=== PATIENT | female | born 1985 | race Caucasian/White ===

== ENCOUNTER 2020-08-14 12:09 | Emergency (ER) | payer MEDICAID, SELFPAY ==
--- NOTE | ~2020-08-14 | CT_ITS ---
EXAMINATION: CT ABDOMEN AND PELVIS WITH CONTRAST CLINICAL INFORMATION: Right-sided pain COMPARISON: Previous ultrasound from 2016 and upper GI July 2018 TECHNIQUE: Multidetector volumetric images were obtained from the superior aspect of the liver through the pubic symphysis following administration 85 mL of Omnipaque 350 intravenous contrast. Sagittal and coronal reformatted images were obtained on the technologist's workstation. Oral contrast: Yes This CT examination was performed using dose optimization techniques as appropriate, variously including the following: *Automated exposure control *Adjustment of mA and/or kV according to patient size (this includes techniques or standardized protocols for targeted exams where dose is matched to indication/reason for exam; i.e. extremities or head) *Use of iterative reconstruction technique DLP: 401 mGy-cm FINDINGS: LUNG BASES: The visualized lung bases are unremarkable. LIVER, GALLBLADDER, AND BILIARY TREE: The liver is low in attenuation suggestive of fatty infiltration. No focal liver lesion is seen. The liver is slightly enlarged, right lobe measuring 20 cm in length. The gallbladder is been removed. There is no biliary duct dilatation. PANCREAS: Unremarkable. SPLEEN: Unremarkable. ADRENAL GLANDS: Unremarkable. KIDNEYS AND URETERS: The kidneys are normal in size, shape, and attenuation. No hydronephrosis, hydroureter, or calculi seen. No perinephric stranding. BLADDER: Unremarkable. GASTROINTESTINAL TRACT: There is an esophageal hernia. It is uncertain whether this represents both hiatal and paraesophageal hernia. This could be better assessed with upper GI exam. There is question of mild colitis of the proximal colon versus changes due to underdistention. Small and large bowel is otherwise unremarkable. The appendix is not identified. No evidence of appendicitis is seen. ABDOMINAL WALL: There is a very small umbilical hernia containing fat. LYMPH NODES: Normal. VASCULAR: Unremarkable. PELVIC VISCERA: Unremarkable. OSSEOUS STRUCTURES: Unremarkable. CT/CT abdomen pelvis w con IMPRESSION: Esophageal hernia, question both hiatal and paraesophageal. This could be better assessed with upper GI. Enlarged fatty liver. Question mild colitis of the proximal colon.
[2020-08-14] MEDS: 0.9 % Sodium Chloride 1,000 ML 999 ML IVCONT (12:15)
--- NOTE | 2020-08-14 12:19 | ECG_ITS ---
Test Reason : VOMITING Blood Pressure : / mmHG Vent. Rate : 067 BPM Atrial Rate : 067 BPM P-R Int : 108 ms QRS Dur : 082 ms QT Int : 400 ms P-R-T Axes : 038 015 040 degrees QTc Int : 422 ms Sinus rhythm with sinus arrhythmia with short AK Otherwise normal ECG No previous ECGs available Referred By: Ramona Fontaine Electronically Signed By:SALOME DOUGLAS
--- NOTE | 2020-08-14 12:22 | ED.GENADULT ---
HPI - General Adult General Chief complaint: Nausea/Vomiting/Diarrhea Stated complaint: N/V/D Abdominal Pain Time Seen by Provider: 08/14/20 12:11 Source: patient Mode of arrival: EMS Limitations: no limitations History of Present Illness HPI narrative: Patient comes to the emergency complaining of 3-4 days of nausea vomiting diarrhea and right-sided abdominal pain. Patient denies fever or chills. Patient admits to drinking alcohol almost every day. Patient states that she had a 10-year-old daughter that from a blood clot, her birthday seen [birth year]. Patient started drinking daily since May since her daughter's birthday was coming up. Patient continues to drink. Related Data Previous Rx's Medication Instructions Recorded levofloxacin 500 mg PO DAILY #7 tab 08/14/20 metronidazole 500 mg PO BID #14 tab 08/14/20 ondansetron HCl [Zofran] 4 mg PO Q6H PRN #20 tab 08/14/20 Allergies Allergy/AdvReac Type Severity Reaction Status Date / Time amitriptyline [From Elavil] Allergy Severe NERVE Verified 08/14/20 13:30 DAMAGE HANDS methadone [METHADONE] Allergy Intermediate VOMITING Verified 08/14/20 13:30 acetaminophen [From TYLENOL] AdvReac Intermediate STOMACH Verified 08/14/20 13:30 UPSET ibuprofen [From MOTRIN] AdvReac Intermediate GI UPSET Verified 08/14/20 13:30 strawberries Allergy Unknown Hives Uncoded 08/14/20 13:29 PMFSH Past Medical History Surgical History (Updated 06/10/20 @ 15:33 by Gypsy Sorenson MA) History of esophagogastroduodenoscopy (EGD) History of Roman fundoplication History of pyloroplasty Hx of section Hx of cholecystectomy Hx of tooth extraction Family History Family History (Updated 06/10/20 @ 15:36 by Gypsy Sorenson MA) Father Diabetes Mother Hypertension Social History Social History Advance Directives: No Advance Directives Information Provided: No Physical Exam Vital Signs: Vital Signs: Last Vital Signs Temp 98.2 F 08/14/20 12:30 Pulse 94 08/14/20 12:30 Resp 18 08/14/20 12:30 BP 114/79 08/14/20 12:30 Pulse Ox 100 08/14/20 12:30 Body Mass Index 22.6 Course Course Course Narrative: I discussed the labs and imaging with the patient. Patient has history of Roman fundoplication and a pyloroplasty. Patient may have questionable colitis. Given the patient's symptoms will go ahead and treat with antibiotics and anti emetics. Medical Decision Making Lab Data Result diagrams: 08/14/20 12:35 08/14/20 12:35 Labs: Lab Results 08/14/20 08/14/20 08/14/20 Range/Units 12:34 12:34 12:34 WBC (4.8-10.8) X10*3/uL RBC (4.20-5.50) X10*6/uL Hgb (12.0-16.0) g/dl Hct (37-47) % MCV (80-98) fL MCH (27.0-33.0) pg MCHC (31.0-35.0) g/dl RDW (11.0-16.0) % Plt Count (160-400) X10*3/uL MPV (9.4-12.3) fL Immature Gran % (Auto) (0.0-0.4) % Neut % (Auto) (45-73) % Lymph % (Auto) (20-40) % [place] % (Auto) (2-11) % Eos % (Auto) (0-4) % Baso % (Auto) (0-2) % Lymph # (Auto) (1.2-4.9) X10*3/uL [place] # (Auto) (0.1-1.2) X10*3/uL Eos # (Auto) (0.0-0.4) X10*3/uL Baso # (Auto) (0.0-0.2) X10*3/uL Abs Immat Gran (auto) (0.00-0.03) X10*3/uL Absolute Neuts (auto) (2.0-8.3) X10*3/uL Absolute Nucleated RBC (0.0-0.012) X10*3/uL Nucleated RBC % (auto) (0.0-0.2) /100WBC Sodium (135-145) mmol/L Potassium (3.3-5.1) mmol/L Chloride (96-108) mmol/L Carbon Dioxide (22-29) mmol/L Anion Gap (12-20) BUN (9-16) mg/dL Creatinine (0.5-1.4) mg/dL Estim Creat Clear Calc Estimated GFR Random Glucose (60-115) mg/dL Calcium (8.4-10.2) mg/dL Magnesium (1.6-2.6) mg/dL Total Bilirubin (0.0-1.0) mg/dL Direct Bilirubin (0.0-0.5) mg/dL AST (5-31) U/L ALT (0-31) U/L Alkaline Phosphatase (39-117) U/L Total Protein (6.5-8.0) g/dL Albumin (3.5-5.0) g/dL Lipase (8-78) U/L Urine Color YELLOW Urine Appearance CLEAR Urine pH 5.5 (5.0-8.0) Ur Specific [place] 1.025 (1.005-1.025) Urine Protein TRACE (NEG-TRACE) MG/DL Urine Glucose (UA) NEG (NEG) MG/DL Urine Ketones NEG (NEG) MG/DL Urine Blood TRACE (NEG) Urine Nitrite NEG (NEG) Ur Leukocyte Esterase NEG (NEG) Urine RBC 0-2 (0) /HPF Urine WBC 1-4 (0-4) /HPF Ur Squamous Epith Cells 2+ /LPF Urine Bacteria TRACE /LPF Urine Test NEGATIVE (NEGATIVE) Urine Opiates Screen Not Detected (Not Detect) Ur Barbiturates Screen POSITIVE H (Not Detect) Ur Phencyclidine Scrn Not Detected (Not Detect) Ur Amphetamines Screen Not Detected (Not Detect) U Benzodiazepines Scrn Not Detected (Not Detect) Urine Cocaine Screen Not Detected (Not Detect) U Marijuana (THC) Screen POSITIVE H (Not Detect) Ethyl Alcohol mg/dL 08/14/20 08/14/20 08/14/20 Range/Units 12:35 12:35 12:35 WBC 7.7 (4.8-10.8) X10*3/uL RBC 4.57 (4.20-5.50) X10*6/uL Hgb 14.4 (12.0-16.0) g/dl Hct 42.4 (37-47) % MCV 92.8 (80-98) fL MCH 31.5 (27.0-33.0) pg MCHC 34.0 (31.0-35.0) g/dl RDW 15.9 (11.0-16.0) % Plt Count 277 (160-400) X10*3/uL MPV 9.5 (9.4-12.3) fL Immature Gran % (Auto) 0.3 (0.0-0.4) % Neut % (Auto) 84.5 H (45-73) % Lymph % (Auto) 10.9 L (20-40) % [place] % (Auto) 4.3 (2-11) % Eos % (Auto) 0.0 (0-4) % Baso % (Auto) 0.0 (0-2) % Lymph # (Auto) 0.8 L (1.2-4.9) X10*3/uL [place] # (Auto) 0.3 (0.1-1.2) X10*3/uL Eos # (Auto) 0.0 (0.0-0.4) X10*3/uL Baso # (Auto) 0.0 (0.0-0.2) X10*3/uL Abs Immat Gran (auto) 0.02 (0.00-0.03) X10*3/uL Absolute Neuts (auto) 6.5 (2.0-8.3) X10*3/uL Absolute Nucleated RBC 0.000 (0.0-0.012) X10*3/uL Nucleated RBC % (auto) 0.0 (0.0-0.2) /100WBC Sodium 137 (135-145) mmol/L Potassium 4.3 (3.3-5.1) mmol/L Chloride 97 (96-108) mmol/L Carbon Dioxide 25 (22-29) mmol/L Anion Gap 19 (12-20) BUN 9 (9-16) mg/dL Creatinine 0.73 (0.5-1.4) mg/dL Estim Creat Clear Calc 85.0 Estimated GFR > 60 Random Glucose 111 (60-115) mg/dL Calcium 9.4 (8.4-10.2) mg/dL Magnesium 1.5 L (1.6-2.6) mg/dL Total Bilirubin 0.8 (0.0-1.0) mg/dL Direct Bilirubin 0.5 (0.0-0.5) mg/dL AST 38 H (5-31) U/L ALT 18 (0-31) U/L Alkaline Phosphatase 115 (39-117) U/L Total Protein 7.4 (6.5-8.0) g/dL Albumin 4.4 (3.5-5.0) g/dL Lipase 14 (8-78) U/L Urine Color Urine Appearance Urine pH (5.0-8.0) Ur Specific [place] (1.005-1.025) Urine Protein (NEG-TRACE) MG/DL Urine Glucose (UA) (NEG) MG/DL Urine Ketones (NEG) MG/DL Urine Blood (NEG) Urine Nitrite (NEG) Ur Leukocyte Esterase (NEG) Urine RBC (0) /HPF Urine WBC (0-4) /HPF Ur Squamous Epith Cells /LPF Urine Bacteria /LPF Urine Test (NEGATIVE) Urine Opiates Screen (Not Detect) Ur Barbiturates Screen (Not Detect) Ur Phencyclidine Scrn (Not Detect) Ur Amphetamines Screen (Not Detect) U Benzodiazepines Scrn (Not Detect) Urine Cocaine Screen (Not Detect) U Marijuana (THC) Screen (Not Detect) Ethyl Alcohol < 10 mg/dL ECG Data Attestation: I personally reviewed and interpreted this ECG as follows: (Rate 67, QTC 422, no ST segment depression or elevations, no T-wave inversions) Discharge Plan Discharge Clinical Impression: Colitis Patient Disposition: Home, Self-Care Instructions: Colitis (ED) Additional Instructions: Stay well hydrated. Drink fluids with electrolytes such as Gatorade or Powerade. Please follow-up with your primary care physician tomorrow. If you have any worsening or new symptoms, please return to the emergency room or call 911 Prescriptions: New metronidazole 500 mg tablet 500 mg PO BID Qty: 14 RF: 0 levofloxacin 500 mg tablet 500 mg PO DAILY Qty: 7 RF: 0 ondansetron HCl [Zofran] 4 mg tablet 4 mg PO Q6H PRN (Reason: nausea and vomiting) Qty: 20 RF: 0
[2020-08-14 12:30] VITALS: BP 114/79; BP 120/68; PULSE 94; RESP 18; TEMP 36.8; O2SAT 100; BMI 22.6
[2020-08-14 12:56] LABS: MANUAL DIFF FLAG NO
[2020-08-14 13:00] LABS: Hematocrit 42.4 % (37-47); Hemoglobin 14.4 g/dl (12.0-16.0); Imm Gran Abs Auto 0.02 X10*3/uL (0.00-0.03); Imm Gran Pct Auto 0.3 % (0.0-0.4); Lymphocytes Absolute Auto 0.8 X10*3/uL (1.2-4.9); Lymphocytes Percent Auto 10.9 % (20-40); Mean Corpuscular Hemoglobin 31.5 pg (27.0-33.0); Mean Corpuscular Volume 92.8 fL (80-98); Mean Platelet Volume 9.5 fL (9.4-12.3); Monocytes Absolute Auto 0.3 X10*3/uL (0.1-1.2); Monocytes Percent Auto 4.3 % (2-11); Neutrophils Absolute Auto 6.5 X10*3/uL (2.0-8.3); Neutrophils Percent Auto 84.5 % (45-73); Platelet Count 277 X10*3/uL (160-400); Red Blood Count 4.57 X10*6/uL (4.20-5.50); Red Cell Distribution Width 15.9 % (11.0-16.0); White Blood Count 7.7 X10*3/uL (4.8-10.8)
[2020-08-14 13:05] LABS: Glucose Urine UA NEG (NEG); Leukocyte Esterase Urine NEG (NEG); Nitrite Urine NEG (NEG); PH 5.5 (5.0-8.0); Specific Gravity - Urine 1.025 (1.005-1.025); Urine Blood TRACE (NEG); Urine Ketones NEG (NEG); Urine Protein TRACE MG/DL (NEG-TRACE)
[2020-08-14 13:06] LABS: Appearance Urine CLEAR; Color Urine YELLOW
[2020-08-14 13:11] LABS: UPreg QC Valid YES; Urine Pregnancy NEGATIVE (NEGATIVE)
[2020-08-14 13:12] LABS: Bacteria Urine TRACE /LPF; RBC Urine 0-2 /HPF (0); Squamous Epithelial Cell Urine 2+ /LPF
[2020-08-14] MEDS: ondansetron HCL 4 MG/2 ML VIAL IVPUSH (13:31)
[2020-08-14 13:34] LABS: Alanine Aminotransferase 18 U/L (0-31); Albumin Level 4.4 g/dL (3.5-5.0); Alkaline Phosphatase 115 U/L (39-117); Anion Gap 19 (12-20); Aspartate Amino Transferase 38 U/L (5-31); Bilirubin Direct 0.5 mg/dL (0.0-0.5); Bilirubin Total 0.8 mg/dL (0.0-1.0); Blood Urea Nitrogen 9 mg/dL (9-16); Calcium 9.4 mg/dL (8.4-10.2); Carbon Dioxide 25 mmol/L (22-29); Chloride 97 mmol/L (96-108); Estimated Glomerular Filt Rate > 60; Ethanol < 10 mg/dL; Glucose Random 111 mg/dL (60-115); Lipase 14 U/L (8-78); Magnesium 1.5 mg/dL (1.6-2.6); Potassium 4.3 mmol/L (3.3-5.1); Sodium 137 mmol/L (135-145); Total Protein 7.4 g/dL (6.5-8.0)
[2020-08-14 13:47] LABS: Amphetamine Screen Urine Not Detected (Not Detect); Barbiturates, Urine POSITIVE (Not Detect); Benzodiazepines Screen Urine Not Detected (Not Detect); Cannabinoid Screen Urine POSITIVE (Not Detect); Cocaine Screen Urine Not Detected (Not Detect); Opiate Screen Urine Not Detected (Not Detect); Phencyclidine Screen Urine Not Detected (Not Detect)
[2020-08-14] MEDS: iohexoL 350 MG/ML 75 ML INFUS..BTL IV (14:25)
== END 2020-08-14 15:59 | disposition home or self-care (01) ==
PROVIDERS: Emergency Provider Emergency Medicine; PCP Family Medicine
DX: K52.9 Noninfective gastroenteritis and colitis, unspecified (principal)
CPT/HCPCS: 36415; 74177; 80048; 80076; 80307; 80320; 81001; 81003; 81025; 83690; 83735; 85025; 93005; 96361; 96374; 96375; 99283; 99284; J2405; Q9967

== ENCOUNTER → 2020-12-02 11:22 | Outpatient (BNVA) | payer MEDICAID, SELFPAY | PROVIDERS: PCP Family Medicine; Referring Provider Family Medicine; Visit Provider Physician Assistant | DX: K52.9 Noninfective gastroenteritis and colitis, unspecified (principal) | CPT/HCPCS: 99202 ==

== ENCOUNTER 2021-01-07 10:12 | Day surgery (SDC) | payer MEDICAID, SELFPAY ==
[2020-12-31 13:15] VITALS: BMI 23.8
[2021-01-07 10:24] VITALS: BP 122/71; PULSE 78; RESP 16; TEMP 36.9; O2SAT 99
[2021-01-07] MEDS: Lactated Ringers 1,000 ML 50 ML IVCONT (10:38)
--- NOTE | 2021-01-07 11:35 | MHC.SHP ---
Pre-Procedural Eval Section A Date of Service: 01/07/21 Section B Chief Complaint: gastroenteritis and colitis Relevant Family History (Specify if Yes): No Relevant Social History: Other (specify) (THC) Present Medications: see Short Stay Collaborative assessment Medical History: Significant History (anemia, colitis) History of Previous Operations: Relevant previous surgery/procedure and date(s) (H/O colonoscopy History of esophagogastroduodenoscopy (EGD) History of Roman fundoplication History of pyloroplasty Hx of section Hx of cholecystectomy Hx of tooth extraction) Allergies: Allergies Allergy/AdvReac Type Severity Reaction Status Date / Time amitriptyline [From Elavil] Allergy Severe NERVE Verified 12/02/20 11:31 DAMAGE HANDS methadone [METHADONE] Allergy Intermediate VOMITING Verified 12/02/20 11:31 acetaminophen [From TYLENOL] AdvReac Intermediate STOMACH Verified 12/02/20 11:31 UPSET ibuprofen [From MOTRIN] AdvReac Intermediate GI UPSET Verified 12/02/20 11:31 strawberries Allergy Unknown Hives Uncoded 08/14/20 13:29 Review of Systems Sugical H&P ROS: Negative: Constitution, Cardiovascular, Respiratory, Neurological, Psychiatric, Hem-Onc, Allergic/Immunologic, Gastrointestinal, Genitourinary, Musculoskeletal, Integumentary, Endocrine and Eyes/Ears/Nose/Throat Exam Surgical H&P Exam: Normal: HEENT, Normal: Heart, Normal: Lungs, Normal: Extremities, Normal: Abdomen, Normal: Skin and Normal: Neurological Plan Diagnosis/Plan: Unchanged I have reviewed the history and physical and performed a pertinent physical examination on my patient. No changes have occurred unless specified.
--- NOTE | 2021-01-07 12:58 | PM.OP ---
Brief Operative Note Date of Service: 01/07/21 Pre-op diagnosis: diarrhea Post-op diagnosis: same Procedure: see op note Surgeon: Deandre Garnett MD Anesthesia: MAC Was an Organizational Development Specialist used for this Procedure?: No Estimated blood loss (mL): 0 Condition: stable Disposition: PACU
--- NOTE | 2021-01-07 12:59 | W.PM.OPN ---
Operative Note Operative Note Date of Service: 01/07/21 Narrative: Operative Information Procedure Description: EGD, Colonoscopy FLEXIBLE TRANSORAL UPPER GASTROINTESTINAL ENDOSCOPY AND COLONOSCOPY PROCEDURE NOTE UPPER ENDOSCOPY Consent: Indications for the procedure and potential complications of bleeding, perforation, reaction to medications and missed diagnosis were discussed with the patient and informed consent was obtained. Instrument: Olympus GIF H 190 J mid size upper endoscope Monitoring: Vital signs and clinical assessment, continuous EKG monitoring, Pulse oximetry, Carbon Dioxide monitoring and blood pressure monitoring were done throughout the procedure. Procedure: The patient was placed in the left lateral decubitis position and pre-procedure medications were administered and a bite block was placed. The endoscope was inserted into the mouth and advanced under direct vision to the third part of duodenum. A careful inspection was made as the upper endoscope was withdrawn including a retroflexed examination of the proximal stomach; Findings and interventions are described below. Findings: Larynx:normal Esophagus: GE junction at 40 cm, diaphragm hiatus at 40 cm, mild esophagitis noted, bx taken from GEJ and random esophagus in different jars Stomach: Patchy erythema. Biopsies were obtained. Prior [place] fundoplication noted and intact. There was reduced gastric motility, also prior pylorplasty noted. Duodenum: Normal bulb and descending duodenum, bx taken Intervention: Biopsies as noted above COLONOSCOPY Instrument: Olympus variable stiffness pediatric scope 190L Colonoscopy Monitoring: Vital signs and clinical assessment, continuous EKG monitoring, Pulse oximetry, Carbon Dioxide monitoring and blood pressure monitoring were done throughout the procedure. Colon withdrawal time was 30 minutes. Procedure: The patient was placed in the left lateral decubitis position and pre-procedure medications were administered. After a digital rectal examination of the ano-rectum, the video colonoscope was inserted into the rectum and advanced through the colon to the cecum/TI. The colonoscope was slowly withdrawn in a retrograde panoramic fashion and the colon mucosa was carefully examined including a retroflexed view of the rectum. Findings and interventions are described below. Procedure Difficulty: Findings: Terminal Ileum-normal bx taken random colon bx taken Cecum:normal Ascending Colon: x 1 sessile polyp 8-10 mm removed wtih cold snare, not retrieved. Transverse Colon -normal Descending Colon:normal Sigmoid Colon: normal Rectum: Retroflexion with small internal hemorrhoids, grade I Anorectum - normal Colon preparation: [place] Bowel Preparation Scale Right colon; 1 Transverse colon: 2 Left colon; 3 (0 = Unprepared colon segment with mucosa not seen due to solid stool that cannot be cleared. 1 = Portion of mucosa of the colon segment seen, but other areas of the colon segment not well seen due to staining, residual stool and/or opaque liquid. 2 = Minor amount of residual staining, small fragments of stool and/or opaque liquid, but mucosa of colon segment seen well. 3 = Entire mucosa of colon segment seen well with no residual staining, small fragments of stool or opaque liquid) Impression and Post Procedure Diagnosis: Endoscopy Findings: s/p niessen fundoplication and pyloroplasty esophagitis gastritis Colonoscopy Findings: polyp internal hemorrhoids Plan: Await Pathology results, incl for mast cell staining Repeat Colonoscopy in 5 years due to polyp removed and not retrieved and prep or earlier if clinically indicated High fiber diet leaflet avoid straining at stool, epsom salts and sitz bath, anusol supps or cream TSH was high before, consider rechecking Above findings were reviewed with the patient and relevant handouts were provided if indicated.
--- NOTE | 2021-01-07 13:15 | HO.ANESPROP2 ---
FORM[facility]LY [facility] Active Problems Active Problems: All Active Problems (Updated 12/31/20 @ 13:10 by Iraida Orozco) Colitis (Acute) Past Medical History Medical History Anemia Back pain Chronic diarrhea Colitis Hx of congenital abnormality Hx of hypoglycemia Hx of renal calculi Migraines Family History Family History Father Diabetes Mother Hypertension Family history of problems with anesthesia: No Surgical History Surgical History H/O colonoscopy History of esophagogastroduodenoscopy (EGD) History of Roman fundoplication History of pyloroplasty Hx laparoscopic cholecystectomy Hx of section Hx of tooth extraction Hx of tubal ligation History of Problems with Anesthesia: No Social History Social History Household Members Other:: - - 2 children, oldest daughter - Alcohol intake: former Patient Tobacco Use Status: Former Tobacco user Quit Date: 2015 Use of substances other than those prescribed or required for medical reasons: Yes Substance Use Type: Marijuana Substance Use Frequency: Daily Are you DNR?: No Advance Directives: No Advance Directives Information Provided: No Advance Directives on File: No Current occupational status: disabled Meds Allergies Allergy/AdvReac Type Severity Reaction Status Date / Time amitriptyline [From Elavil] Allergy Severe NERVE Verified 12/02/20 11:31 DAMAGE HANDS methadone [METHADONE] Allergy Intermediate VOMITING Verified 12/02/20 11:31 acetaminophen [From TYLENOL] AdvReac Intermediate STOMACH Verified 12/02/20 11:31 UPSET ibuprofen [From MOTRIN] AdvReac Intermediate GI UPSET Verified 12/02/20 11:31 strawberries Allergy Unknown Hives Uncoded 08/14/20 13:29 Active Medications: Current Medications Generic Name Dose Route Start Last Admin Trade Name Freq PRN Reason Stop Dose Admin Lactated Ringer's 1,000 mls @ 50 mls/hr 01/07/21 10:30 01/07/21 10:38 Lr IVCONT 50 mls/hr .Q20H TAYA Administration Home Medications Medication Instructions Recorded Confirmed Last Taken Type buprenorphine 8 mg-naloxone 2 mg 1 film BUCCAL DAILY@0730 12/02/20 12/31/20 Unknown History sublingual film (Suboxone) ferrous sulfate 325 mg (65 mg 325 mg PO DAILY 12/02/20 12/31/20 Unknown History iron) tablet,delayed release ascorbic acid (vitamin C) 250 mg 1 tab PO DAILY 12/31/20 12/31/20 Unknown History tablet buprenorphine 2 mg-naloxone 0.5 mg 3 strip SUBLINGUAL BEDTIME 12/31/20 12/31/20 Unknown History sublingual film (Suboxone) ergocalciferol (vitamin D2) 1,250 PO 12/31/20 12/31/20 Unknown History mcg (50,000 unit) capsule Exam Exam Date and Time: January 07, 2021 1315 Height,Weight and Vital Signs: Height 5 ft 2 in Weight 130 lb Last Vital Signs Temp 98.5 F 01/07/21 10:24 Pulse 78 01/07/21 10:24 Resp 16 01/07/21 10:24 BP 122/71 01/07/21 10:24 Pulse Ox 99 01/07/21 10:24 Airway Mallampati Class: III TM Dist: >3cm Denture: Upper and Lower Assessment and Plan Assessment Anesthesia Assessment: Anesthesia Plan Discussed and Chart Reviewed Final Anesthetic Review Family History of Problems with Anesthesia: No History of Problems with Anesthesia: No NPO: Yes ASA Class: II Final Preanesthetic Review: No Changes in Pt Med Stat, Consent Obtained/Reviewed and Anes Risks/Benef Reviewed Patient Risk: Low Procedure Risk: Low Anesthetic Plan Anesthetic Plan: MAC: Disposition: Standard PACU
[2021-01-07 14:05] VITALS: BP 136/67; PULSE 50; RESP 16; TEMP 36.6; O2SAT 100
[2021-01-07 14:20] VITALS: BP 114/61; PULSE 56; RESP 16; O2SAT 100
[2021-01-07 14:35] VITALS: BP 120/75; PULSE 68; RESP 16; TEMP 36.6; O2SAT 98
== END 2021-01-07 15:17 | disposition home or self-care (01) ==
PROVIDERS: PCP Family Medicine; Visit Provider Internal Medicine Gastroenterology
PROC: (CPT 45385; principal; 2021-01-07 11:10)
DX: K63.5 Polyp of colon (principal); K64.0 First degree hemorrhoids; K29.50 Unspecified chronic gastritis without bleeding; K20.80 Other esophagitis without bleeding; K44.9 Diaphragmatic hernia without obstruction or gangrene; Z87.19 Personal history of other diseases of the digestive system; Z98.890 Other specified postprocedural states; D64.9 Anemia, unspecified; E16.2 Hypoglycemia, unspecified; Z87.442 Personal history of urinary calculi; Z90.49 Acquired absence of other specified parts of digestive tract; Z79.899 Other long term (current) drug therapy; Z88.8 Allergy status to other drugs, medicaments and biological substances; F12.90 Cannabis use, unspecified, uncomplicated; Z87.891 Personal history of nicotine dependence
CPT/HCPCS: 45385; 45380; 43239; 88305; 88341; 88342; J2370

== ENCOUNTER → 2021-02-09 11:07 | Outpatient (BNVA) | payer MEDICAID, SELFPAY | PROVIDERS: PCP Family Medicine; Visit Provider Internal Medicine Gastroenterology ==

== ENCOUNTER → 2021-06-08 13:26 | Outpatient (BNVA) | payer MEDICAID, SELFPAY | PROVIDERS: PCP Family Medicine; Visit Provider Internal Medicine Gastroenterology ==

== ENCOUNTER 2021-06-30 14:09 | Emergency (ER) | payer MEDICAID, SELFPAY ==
[2021-06-30 14:17] VITALS: BP 138/78; PULSE 90; O2SAT 100
== END 2021-06-30 19:04 | disposition left against medical advice (07) ==
LOC: HO.ED 19:02
PROVIDERS: Emergency Provider Emergency Medicine
DX: R33.9 Retention of urine, unspecified (principal)

== ENCOUNTER 2021-07-04 05:40 | Emergency (ER) | payer MEDICAID, SELFPAY ==
--- NOTE | ~2021-07-04 | CT_ITS ---
EXAMINATION: CT ABDOMEN AND PELVIS WITH IV CONTRAST CLINICAL INFORMATION: Abdominal tenderness, nausea, vomiting, diarrhea and elevated lipase. COMPARISON: CT abdomen and pelvis from 08/14/2020 TECHNIQUE: Contrast-enhanced volumetric helical CT acquisition of the abdomen and pelvis. Axial images are presented at 0.625 mm and 5 mm slice thickness. Coronal and sagittal reformatted images were generated at the technologist workstation. Intravenous contrast: 85 mL of Omnipaque 350. This CT examination was performed using dose optimization techniques as appropriate, variously including the following: *Automated exposure control *Adjustment of mA and/or kV according to patient size (this includes techniques or standardized protocols for targeted exams where dose is matched to indication/reason for exam; i.e. extremities or head) *Use of iterative reconstruction technique DLP: 397 mGy-cm. FINDINGS: LUNG BASES: Unremarkable. LIVER, GALLBLADDER, AND BILIARY TREE: Gallbladder is surgically absent. The common bile duct measures up to 0.7 cm transverse diameter. No evidence of choledocholithiasis. No dilated intrahepatic ducts. There is mild hepatomegaly with right hepatic lobe measuring approximately 21 cm craniocaudal dimension. There is diffuse hepatic steatosis, and steatosis is particularly prominent in the left lobe near the falciform ligament. No suspicious liver lesion. PANCREAS: Normal. No evidence of pancreatic mass, edema or ductal dilatation. SPLEEN: Normal. ADRENAL GLANDS: Normal. KIDNEYS AND URETERS: The kidneys have normal size, shape, and attenuation. The right kidney is slightly low in position, possibly is chronically displaced by the prominent right hepatic lobe. No renal mass. No hydroureteronephrosis, urolithiasis or perinephric edema. BLADDER: Unremarkable. BOWEL AND PERITONEUM: There appears to be chronic, moderate sliding-type hiatal hernia of the stomach. The stomach is underdistended, not optimally evaluated. No dilated bowel loops. The appendix is normal. The descending and sigmoid colon is suboptimally distended. The lack of optimal distention likely accounts for the and questionable finding of mild wall thickening of the colon. Those segments of the colon that are better distended show no wall thickening. There is no overt colitis. There is no vascular engorgement or fat stranding in the mesentery. No abdominal free fluid or pneumoperitoneum. ABDOMINAL WALL: Unremarkable. LYMPH NODES: No pathologic sized lymph nodes in the abdomen or pelvis. No inguinal lymphadenopathy. VASCULATURE: Unremarkable. PELVIC VISCERA: The uterus is normal. 4 cm cyst of the right ovary has a simple appearance. This is likely a physiologic cyst, almost certainly benign, and no follow-up imaging is recommended (for an asymptomatic cyst). No pelvic free fluid. MUSCULOSKELETAL: Unremarkable. CT/CT abdomen pelvis w con IMPRESSION: * Moderate hiatal hernia. * No imaging evidence of pancreatitis. * Diffuse hepatic steatosis is noted, status post cholecystectomy. * No evidence of bowel obstruction. Also, there is no overt acute inflammatory change of bowel. The appendix is normal. * 4 cm cyst of the right ovary. Imaging follow-up is not recommended for a simple cyst of this size (if asymptomatic).
[2021-07-04 05:59] VITALS: BP 96/84; PULSE 120; RESP 16; TEMP 36.8; O2SAT 99; BMI 23.8
[2021-07-04 07:52] LABS: Hematocrit 40.8 % (37.0-47.0); Hemoglobin 14.8 g/dl (12.0-16.0); Mean Corpuscular HGB Conc 36.3 g/dl (31.0-35.0); Mean Corpuscular Hemoglobin 33.3 pg (27.0-33.0); Mean Corpuscular Volume 91.9 fL (80.0-98.0); Mean Platelet Volume 10.1 fL (9.4-12.3); Platelet Count 178 X10*3/uL (160-400); Red Blood Count 4.44 X10*6/uL (4.20-5.50); Red Cell Distribution Width 15.4 % (11.0-16.0); White Blood Count 8.7 X10*3/uL (4.8-10.8)
[2021-07-04 08:07] LABS: COVID-19 Test Negative (Negative)
[2021-07-04 08:18] LABS: Alanine Aminotransferase 22 U/L (0-31); Albumin Level 4.1 g/dL (3.5-5.0); Alkaline Phosphatase 89 U/L (39-117); Anion Gap 15 (12-20); Aspartate Amino Transferase 45 U/L (5-31); Bilirubin Total 1.3 mg/dL (0.0-1.0); Blood Urea Nitrogen 10 mg/dL (9-16); Calcium 10.1 mg/dL (8.4-10.2); Carbon Dioxide 34 mmol/L (22-29); Chloride 89 mmol/L (96-108); Creatinine Clr Calc Pharmacy 80.9; Estimated Glomerular Filt Rate > 60; Glucose Random 104 mg/dL (60-115); Potassium 3.8 mmol/L (3.3-5.1); Sodium 134 mmol/L (135-145)
--- NOTE | 2021-07-04 08:26 | PC.NURSE ---
pt brought into triage for blood work. Ordered zofran, saw warning, cancelled order. Discussed with PA. Will get EKG prior to administration. Pt in waiting room, awaiting bed
[2021-07-04 08:29] LABS: Lipase 238 U/L (8-78); Magnesium 1.5 mg/dL (1.6-2.6)
--- NOTE | 2021-07-04 08:57 | PC.NURSE ---
pt with Mg 1.5. Charge nurse made aware patient should come in first available bed.
--- NOTE | 2021-07-04 11:22 | ED_ITS ---
HPI - General Adult General Chief complaint: General Medical <MULU Sheppard - Last Filed: 07/04/21 15:45> Stated complaint: arm, chest, and abdominal pain <MULU Sheppard - Last Filed: 07/04/21 15:45> Time Seen by Provider: 07/04/21 08:14 <MULU Sheppard - Last Filed: 07/04/21 15:45> Source: patient <MULU Sheppard - Last Filed: 07/04/21 15:45> Mode of arrival: ambulatory <MULU Sheppard - Last Filed: 07/04/21 15:45> History of Present Illness HPI narrative: 36-year-old female with a past medical history of anemia, chronic diarrhea, colitis, hypoglycemia, migraines, presenting to the ED complaining of diffuse abdominal pain, nausea, vomiting, diarrhea, generalized fatigue/weakness x8 days. Reports burning up her chest. Also reports black stool last night. Admits was started on Flagyl/Levaquin and Zofran by PCP on 06/30 without improvement, has been unable to tolerate p.o. Denies fever, chills, dysuria/ hematuria, suspicious food intake <MULU Sheppard - Last Filed: 07/04/21 15:45> Onset (ago): day(s) <MULU Sheppard - Last Filed: 07/04/21 15:45> Related Data Home medications: Home Medications Medication Instructions Recorded Confirmed buprenorphine 8 mg-naloxone 2 mg 1 film BUCCAL DAILY@0730 12/02/20 12/31/20 sublingual film (Suboxone) ferrous sulfate 325 mg (65 mg 325 mg PO DAILY 12/02/20 12/31/20 iron) tablet,delayed release ascorbic acid (vitamin C) 250 mg 1 tab PO DAILY 12/31/20 12/31/20 tablet buprenorphine 2 mg-naloxone 0.5 mg 3 strip SUBLINGUAL BEDTIME 12/31/20 12/31/20 sublingual film (Suboxone) ergocalciferol (vitamin D2) 1,250 PO 12/31/20 12/31/20 mcg (50,000 unit) capsule [id number]-[id number] 0 tab PO 06/08/21 50 mg-325 mg-40 mg tablet Previous Rx's Medication Instructions Recorded bisacodyl 5 mg tablet,delayed 10 mg PO ONCE 1 Days #2 tab 12/02/20 release (Dulcolax (bisacodyl)) polyethylene glycol 3350 17 238 g PO ONCE 1 Days #238 g 12/02/20 gram/dose oral powder (Miralax) cromolyn 100 mg/5 mL oral 200 mg (10 mL) PO QID 30 Days 02/09/21 concentrate #1200 ml famotidine 40 mg tablet (Pepcid) 40 mg PO BEDTIME #30 tab 02/09/21 loratadine 10 mg tablet (Claritin) 10 mg PO DAILY #30 tab 02/09/21 levofloxacin 500 mg tablet 500 mg PO DAILY #7 tab 06/30/21 metronidazole 500 mg tablet 500 mg PO TID 7 Days #21 tab 06/30/21 ondansetron 4 mg disintegrating 4 mg PO Q8H PRN #30 tab 06/30/21 tablet aluminum-mag hydroxide-simethicone 5 ml PO 5XD PRN #30 ml 07/04/21 200 mg-200 mg-20 mg/5 mL oral susp (Maalox Advanced) dicyclomine 20 mg tablet 20 mg PO QID #14 tab 07/04/21 metoclopramide HCl 10 mg tablet 10 mg PO Q6H PRN #10 tab 07/04/21 (Reglan) <MULU Sheppard - Last Filed: 07/04/21 15:45> Allergies/adverse reactions: Allergies Allergy/AdvReac Type Severity Reaction Status Date / Time amitriptyline [From Elavil] Allergy Severe NERVE Verified 06/08/21 13:26 DAMAGE HANDS methadone [METHADONE] Allergy Intermediate VOMITING Verified 06/08/21 13:26 acetaminophen [From TYLENOL] AdvReac Intermediate STOMACH Verified 06/08/21 13:26 UPSET ibuprofen [From MOTRIN] AdvReac Intermediate GI UPSET Verified 06/08/21 13:26 strawberries Allergy Unknown Hives Uncoded 06/08/21 13:26 <MULU Sheppard - Last Filed: 07/04/21 15:45> Review of Systems Review of Systems: Constitutional: No Fever, No Chills, + Fatigue, + Malaise ENT/Mouth: No Ear Pain, No Nasal Congestion, No sore throat, No Rhinorrhea, No Swallowing Difficulty Eyes: No Eye Pain, No Swelling, No Redness Cardiovascular: No Chest Pain, No SOB, No Edema, No Palpitations Respiratory: No Cough, No Dyspnea Gastrointestinal: + Nausea, + Vomiting, + Diarrhea, No Constipation, + Abdominal pain, No Hematochezia, + Melena Genitourinary: No Dysuria, No Urinary Frequency, No Hematuria, No Flank Pain, No Urinary Flow Changes, No Hesitancy Musculoskeletal: No joint pain, No Myalgias, No Joint Swelling Skin: No Skin Lesions, No rash Neuro: + Weakness, No Loss of Consciousness, No Dizziness, No Headache <MULU Sheppard - Last Filed: 07/04/21 15:45> Yes all other systems are reviewed and are negative <MULU Sheppard - Last Filed: 07/04/21 15:45> [facility] Past Medical History Attestation statement: The following information was validated with the patient. <MULU Sheppard - Last Filed: 07/04/21 15:45> Medical History: Medical History Anemia Back pain Chronic diarrhea Colitis Hx of congenital abnormality Hx of hypoglycemia Hx of renal calculi Migraines <MULU Sheppard - Last Filed: 07/04/21 15:45> Surgical History: Surgical History H/O colonoscopy History of esophagogastroduodenoscopy (EGD) History of Roman fundoplication History of pyloroplasty Hx laparoscopic cholecystectomy Hx of section Hx of tooth extraction Hx of tubal ligation <MULU Sheppard - Last Filed: 07/04/21 15:45> Family History Family History: Family History Father Diabetes Mother Hypertension <MULU Sheppard - Last Filed: 07/04/21 15:45> Social History Social History: Social History Household Members Other:: - - 2 children, oldest daughter - Alcohol intake: former Patient Tobacco Use Status: Former Tobacco user Quit Date: 2015 Substance Use Type: Marijuana Advance Directives: No Advance Directives Information Provided: No Current occupational status: disabled <MULU Sheppard - Last Filed: 07/04/21 15:45> Physical Exam 2 Vital Signs: Vital Signs: Last Vital Signs Temp 98.2 F 07/04/21 05:59 Pulse 107 H 07/04/21 14:24 Resp 15 07/04/21 14:24 BP 112/72 07/04/21 14:24 Pulse Ox 96 07/04/21 14:24 BMI result Body Mass Index 23.8 <MULU Sheppard - Last Filed: 07/04/21 15:45> Vital Signs: Last Vital Signs Temp 98.2 F 07/04/21 05:59 Pulse 107 H 07/04/21 14:24 Resp 15 07/04/21 14:24 BP 112/72 07/04/21 14:24 Pulse Ox 96 07/04/21 14:24 BMI result Body Mass Index 23.8 <Juan Sanders MD - Last Filed: 07/06/21 06:46> Const: General: cooperative, healthy appearing, well developed and anxious <MULU Sheppard - Last Filed: 07/04/21 15:45> Limitations: no limitations <MULU Sheppard - Last Filed: 07/04/21 15:45> HENMT: Head: Yes normal to inspection <MULU Sheppard - Last Filed: 07/04/21 15:45> Ears: hearing grossly normal bilaterally <MULU Sheppard - Last Filed: 07/04/21 15:45> General nose exam: Normal external nose present <MULU Sheppard - Last Filed: 07/04/21 15:45> Face and sinus: Yes normal facial exam <MULU Sheppard - Last Filed: 07/04/21 15:45> Eyes: General: appearance normal, both eyes and all related structures <MULU Sheppard - Last Filed: 07/04/21 15:45> EOM: EOMs intact bilaterally <MULU Sheppard - Last Filed: 07/04/21 15:45> Neck: Neck: Yes normal visual inspection and Yes no meningeal signs <MULU Sheppard - Last Filed: 07/04/21 15:45> Resp: Effort & Inspection: normal respiratory effort <Jacqueline Lozanoranjansamreen PA - Last Filed: 07/04/21 15:45> Auscultation: clear to auscultation bilaterally, no rales, no rhonchi and no wheezes <Jacqueline Lozanovirginia PA - Last Filed: 07/04/21 15:45> Cardio: Rate: regular rate <Jacqueline Lozanovirginia PA - Last Filed: 07/04/21 15:45> Heart sounds: S1 normal heart sound present and S2 normal heart sound present <Jacqueline Lozanovirginia PA - Last Filed: 07/04/21 15:45> GI: Inspection: Yes normal to inspection <Jacqueline Lozanovirginia PA - Last Filed: 07/04/21 15:45> Palpation (GI): Soft to palpation, Tenderness to palpation present (GI) in the epigastrum and in the LLQ, no guarding and not rigid <Jacqueline Martavirginia PA - Last Filed: 07/04/21 15:45> Skin: Rashes: no rashes <Jacqueline Lozanovirginia PA - Last Filed: 07/04/21 15:45> Wounds: no wounds <Jacqueline Lozanovirginia PA - Last Filed: 07/04/21 15:45> Neuro: General: gait normal, tone normal, moves all extremities and no meni ngeal signs <Jacqueline Lozanovirginia PA - Last Filed: 07/04/21 15:45> Gait exam (Neuro): Normal gait present <Jacqueline Lozanovirginia PA - Last Filed: 07/04/21 15:45> Extrem: General: Yes normal to inspection <Jacqueline Martavirginia PA - Last Filed: 07/04/21 15:45> Course Course Course Narrative: -1150--no leukocytosis. H&H stable. Chloride low, CO2 elevated consistent with nausea/vomiting. Magnesium low 1.5 > 2g IV repletion ordered - bilirubin mildly elevated. AST chronically elevated. Lipase elevated to 238 -1246--lactic acidosis negative. Occult stool negative -1449--CT abdomen pelvis w con IMPRESSION: *? Moderate hiatal hernia. *? No imaging evidence of pancreatitis. *? Diffuse hepatic steatosis is noted, status post cholecystectomy. *? No evidence of bowel obstruction. Also, there is no overt acute inflammatory change of bowel. The appendix is normal. *? 4 cm cyst of the right ovary. Imaging follow-up is not recommended for a simple cyst of this size (if asymptomatic). >> results discussed with patient. Will p.o. challenge and re-evaluate -repeat BMP with mild improvement -1545--patient tolerating p.o. water and Jell-O without nausea, vomiting or diarrhea. Discussed worrisome signs and symptoms and strict return precautions and needed close follow-up with PCP/GI. Patient verbalized understanding & feel safe for discharge home at this time <MULU Sheppard - Last Filed: 07/04/21 15:45> Medical Decision Making MDM Narrative Medical decision making narrative: 36-year-old female with a past medical history of anemia, chronic diarrhea, colitis, hypoglycemia, migraines, presenting to the ED complaining of diffuse abdominal pain, nausea, vomiting, diarrhea, generalized fatigue/weakness x8 days. On exam tachycardic, anxious, abdomen soft with epigastric/LLQ tenderness to palpation, no rebound or guarding. Concern for dehydration/metabolic abnormalities vs pancreatitis vs colitis/diverticulitis. Lower concern for appendicitis/cholecystitis/cholelithiasis. Rule out other infectious etiology Low concern for severe sepsis, tachycardia likely from dehydration/anxiety Plan: EKG, labs, UA, CT abdomen/pelvis, IVF, symptomatic treatment, re-evaluate <MULU Sheppard - Last Filed: 07/04/21 15:45> Medical Records Medical records reviewed: Yes I reviewed the patient's medical records. <UMLU Sheppadr Last Filed: 07/04/21 15:45> Lab Data Lab results reviewed: Yes I reviewed the patient's lab results. <MULU Sheppard - Last Filed: 07/04/21 15:45> Result diagrams: : 07/04/21 07:47 07/04/21 15:14 <MULU Sheppard - Last Filed: 07/04/21 15:45> Labs: Lab Results 07/04/21 07/04/21 07/04/21 Range/Units 07:44 07:47 07:47 WBC 8.7 (4.8-10.8) X10*3/uL RBC 4.44 (4.20-5.50) X10*6/uL Hgb 14.8 (12.0-16.0) g/dl Hct 40.8 (37.0-47.0) % MCV 91.9 (80.0-98.0) fL MCH 33.3 H (27.0-33.0) pg MCHC 36.3 H (31.0-35.0) g/dl RDW 15.4 (11.0-16.0) % Plt Count 178 (160-400) X10*3/uL MPV 10.1 (9.4-12.3) fL Absolute Nucleated RBC 0.000 (0.0-0.012) X10*3/uL Nucleated RBC % (auto) 0.0 (0.0-0.2) /100WBC Sodium 134 L (135-145) mmol/L Potassium 3.8 (3.3-5.1) mmol/L Chloride 89 L (96-108) mmol/L Carbon Dioxide 34 H (22-29) mmol/L Anion Gap 15 (12-20) BUN 10 (9-16) mg/dL Creatinine 0.76 (0.5-1.4) mg/dL Estim Creat Clear Calc 80.9 Estimated GFR > 60 Random Glucose 104 (60-115) mg/dL Lactic Acid (0.5-2.0) mmol/L Calcium 10.1 D (8.4-10.2) mg/dL Magnesium 1.5 L (1.6-2.6) mg/dL Total Bilirubin 1.3 H (0.0-1.0) mg/dL AST 45 H (5-31) U/L ALT 22 (0-31) U/L Alkaline Phosphatase 89 D (39-117) U/L Total Protein 7.0 (6.5-8.0) g/dL Albumin 4.1 (3.5-5.0) g/dL Lipase 238 H (8-78) U/L Urine Color Urine Appearance Urine pH (5.0-8.0) Ur Specific [place] (1.005-1.025) Urine Protein (NEG-TRACE) MG/DL Urine Glucose (UA) (NEG) MG/DL Urine Ketones (NEG) MG/DL Urine Blood (NEG) Urine Nitrite (NEG) Ur Leukocyte Esterase (NEG) Urine RBC (0) /HPF Urine WBC (0-4) /HPF Ur Squamous Epith Cells /LPF Urine Bacteria /LPF Urine Test (NEGATIVE) Stool Occult Blood (NEGATIVE) COVID-19 (SHAKIR) Negative (Negative) COVID-19 Clin Com See Note 07/04/21 07/04/21 07/04/21 Range/Units 11:32 12:14 15:14 WBC (4.8-10.8) X10*3/uL RBC (4.20-5.50) X10*6/uL Hgb (12.0-16.0) g/dl Hct (37.0-47.0) % MCV (80.0-98.0) fL MCH (27.0-33.0) pg MCHC (31.0-35.0) g/dl RDW (11.0-16.0) % Plt Count (160-400) X10*3/uL MPV (9.4-12.3) fL Absolute Nucleated RBC (0.0-0.012) X10*3/uL Nucleated RBC % (auto) (0.0-0.2) /100WBC Sodium 136 (135-145) mmol/L Potassium 3.7 (3.3-5.1) mmol/L Chloride 93 L (96-108) mmol/L Carbon Dioxide 33 H (22-29) mmol/L Anion Gap 14 (12-20) BUN 9 (9-16) mg/dL Creatinine 0.78 (0.5-1.4) mg/dL Estim Creat Clear Calc 78.8 Estimated GFR > 60 Random Glucose 105 (60-115) mg/dL Lactic Acid 1.4 (0.5-2.0) mmol/L Calcium 9.7 (8.4-10.2) mg/dL Magnesium (1.6-2.6) mg/dL Total Bilirubin (0.0-1.0) mg/dL AST (5-31) U/L ALT (0-31) U/L Alkaline Phosphatase (39-117) U/L Total Protein (6.5-8.0) g/dL Albumin (3.5-5.0) g/dL Lipase (8-78) U/L Urine Color Urine Appearance Urine pH (5.0-8.0) Ur Specific [place] (1.005-1.025) Urine Protein (NEG-TRACE) MG/DL Urine Glucose (UA) (NEG) MG/DL Urine Ketones (NEG) MG/DL Urine Blood (NEG) Urine Nitrite (NEG) Ur Leukocyte Esterase (NEG) Urine RBC (0) /HPF Urine WBC (0-4) /HPF Ur Squamous Epith Cells /LPF Urine Bacteria /LPF Urine Test (NEGATIVE) Stool Occult Blood NEGATIVE (NEGATIVE) COVID-19 (SHAKIR) (Negative) COVID-19 Clin Com 07/04/21 07/04/21 Range/Units 15:14 15:14 WBC (4.8-10.8) X10*3/uL RBC (4.20-5.50) X10*6/uL Hgb (12.0-16.0) g/dl Hct (37.0-47.0) % MCV (80.0-98.0) fL MCH (27.0-33.0) pg MCHC (31.0-35.0) g/dl RDW (11.0-16.0) % Plt Count (160-400) X10*3/uL MPV (9.4-12.3) fL Absolute Nucleated RBC (0.0-0.012) X10*3/uL Nucleated RBC % (auto) (0.0-0.2) /100WBC Sodium (135-145) mmol/L Potassium (3.3-5.1) mmol/L Chloride (96-108) mmol/L Carbon Dioxide (22-29) mmol/L Anion Gap (12-20) BUN (9-16) mg/dL Creatinine (0.5-1.4) mg/dL Estim Creat Clear Calc Estimated GFR Random Glucose (60-115) mg/dL Lactic Acid (0.5-2.0) mmol/L Calcium (8.4-10.2) mg/dL Magnesium (1.6-2.6) mg/dL Total Bilirubin (0.0-1.0) mg/dL AST (5-31) U/L ALT (0-31) U/L Alkaline Phosphatase (39-117) U/L Total Protein (6.5-8.0) g/dL Albumin (3.5-5.0) g/dL Lipase (8-78) U/L Urine Color YELLOW Urine Appearance CLEAR Urine pH 7.0 (5.0-8.0) Ur Specific [place] <= 1.005 (1.005-1.025) Urine Protein TRACE (NEG-TRACE) MG/DL Urine Glucose (UA) NEG (NEG) MG/DL Urine Ketones NEG (NEG) MG/DL Urine Blood 3+ H (NEG) Urine Nitrite NEG (NEG) Ur Leukocyte Esterase NEG (NEG) Urine RBC 0-2 (0) /HPF Urine WBC 0 (0-4) /HPF Ur Squamous Epith Cells 1+ /LPF Urine Bacteria NONE /LPF Urine Test NEGATIVE (NEGATIVE) Stool Occult Blood (NEGATIVE) COVID-19 (SHAKIR) (Negative) COVID-19 Clin Com <MULU Sheppard - Last Filed: 07/04/21 15:45> Lab Results 07/04/21 07/04/21 07/04/21 Range/Units 07:44 07:47 07:47 WBC 8.7 (4.8-10.8) X10*3/uL RBC 4.44 (4.20-5.50) X10*6/uL Hgb 14.8 (12.0-16.0) g/dl Hct 40.8 (37.0-47.0) % MCV 91.9 (80.0-98.0) fL MCH 33.3 H (27.0-33.0) pg MCHC 36.3 H (31.0-35.0) g/dl RDW 15.4 (11.0-16.0) % Plt Count 178 (160-400) X10*3/uL MPV 10.1 (9.4-12.3) fL Absolute Nucleated RBC 0.000 (0.0-0.012) X10*3/uL Nucleated RBC % (auto) 0.0 (0.0-0.2) /100WBC Sodium 134 L (135-145) mmol/L Potassium 3.8 (3.3-5.1) mmol/L Chloride 89 L (96-108) mmol/L Carbon Dioxide 34 H (22-29) mmol/L Anion Gap 15 (12-20) BUN 10 (9-16) mg/dL Creatinine 0.76 (0.5-1.4) mg/dL Estim Creat Clear Calc 80.9 Estimated GFR > 60 Random Glucose 104 (60-115) mg/dL Lactic Acid (0.5-2.0) mmol/L Calcium 10.1 D (8.4-10.2) mg/dL Magnesium 1.5 L (1.6-2.6) mg/dL Total Bilirubin 1.3 H (0.0-1.0) mg/dL AST 45 H (5-31) U/L ALT 22 (0-31) U/L Alkaline Phosphatase 89 D (39-117) U/L Total Protein 7.0 (6.5-8.0) g/dL Albumin 4.1 (3.5-5.0) g/dL Lipase 238 H (8-78) U/L Urine Color Urine Appearance Urine pH (5.0-8.0) Ur Specific [place] (1.005-1.025) Urine Protein (NEG-TRACE) MG/DL Urine Glucose (UA) (NEG) MG/DL Urine Ketones (NEG) MG/DL Urine Blood (NEG) Urine Nitrite (NEG) Ur Leukocyte Esterase (NEG) Urine RBC (0) /HPF Urine WBC (0-4) /HPF Ur Squamous Epith Cells /LPF Urine Bacteria /LPF Urine Test (NEGATIVE) Stool Occult Blood (NEGATIVE) COVID-19 (SHAKIR) Negative (Negative) COVID-19 Clin Com See Note 07/04/21 07/04/21 07/04/21 Range/Units 11:32 12:14 15:14 WBC (4.8-10.8) X10*3/uL RBC (4.20-5.50) X10*6/uL Hgb (12.0-16.0) g/dl Hct (37.0-47.0) % MCV (80.0-98.0) fL MCH (27.0-33.0) pg MCHC (31.0-35.0) g/dl RDW (11.0-16.0) % Plt Count (160-400) X10*3/uL MPV (9.4-12.3) fL Absolute Nucleated RBC (0.0-0.012) X10*3/uL Nucleated RBC % (auto) (0.0-0.2) /100WBC Sodium 136 (135-145) mmol/L Potassium 3.7 (3.3-5.1) mmol/L Chloride 93 L (96-108) mmol/L Carbon Dioxide 33 H (22-29) mmol/L Anion Gap 14 (12-20) BUN 9 (9-16) mg/dL Creatinine 0.78 (0.5-1.4) mg/dL Estim Creat Clear Calc 78.8 Estimated GFR > 60 Random Glucose 105 (60-115) mg/dL Lactic Acid 1.4 (0.5-2.0) mmol/L Calcium 9.7 (8.4-10.2) mg/dL Magnesium (1.6-2.6) mg/dL Total Bilirubin (0.0-1.0) mg/dL AST (5-31) U/L ALT (0-31) U/L Alkaline Phosphatase (39-117) U/L Total Protein (6.5-8.0) g/dL Albumin (3.5-5.0) g/dL Lipase (8-78) U/L Urine Color Urine Appearance Urine pH (5.0-8.0) Ur Specific [place] (1.005-1.025) Urine Protein (NEG-TRACE) MG/DL Urine Glucose (UA) (NEG) MG/DL Urine Ketones (NEG) MG/DL Urine Blood (NEG) Urine Nitrite (NEG) Ur Leukocyte Esterase (NEG) Urine RBC (0) /HPF Urine WBC (0-4) /HPF Ur Squamous Epith Cells /LPF Urine Bacteria /LPF Urine Test (NEGATIVE) Stool Occult Blood NEGATIVE (NEGATIVE) COVID-19 (SHAKIR) (Negative) COVID-19 Clin Com 07/04/21 07/04/21 Range/Units 15:14 15:14 WBC (4.8-10.8) X10*3/uL RBC (4.20-5.50) X10*6/uL Hgb (12.0-16.0) g/dl Hct (37.0-47.0) % MCV (80.0-98.0) fL MCH (27.0-33.0) pg MCHC (31.0-35.0) g/dl RDW (11.0-16.0) % Plt Count (160-400) X10*3/uL MPV (9.4-12.3) fL Absolute Nucleated RBC (0.0-0.012) X10*3/uL Nucleated RBC % (auto) (0.0-0.2) /100WBC Sodium (135-145) mmol/L Potassium (3.3-5.1) mmol/L Chloride (96-108) mmol/L Carbon Dioxide (22-29) mmol/L Anion Gap (12-20) BUN (9-16) mg/dL Creatinine (0.5-1.4) mg/dL Estim Creat Clear Calc Estimated GFR Random Glucose (60-115) mg/dL Lactic Acid (0.5-2.0) mmol/L Calcium (8.4-10.2) mg/dL Magnesium (1.6-2.6) mg/dL Total Bilirubin (0.0-1.0) mg/dL AST (5-31) U/L ALT (0-31) U/L Alkaline Phosphatase (39-117) U/L Total Protein (6.5-8.0) g/dL Albumin (3.5-5.0) g/dL Lipase (8-78) U/L Urine Color YELLOW Urine Appearance CLEAR Urine pH 7.0 (5.0-8.0) Ur Specific [place] <= 1.005 (1.005-1.025) Urine Protein TRACE (NEG-TRACE) MG/DL Urine Glucose (UA) NEG (NEG) MG/DL Urine Ketones NEG (NEG) MG/DL Urine Blood 3+ H (NEG) Urine Nitrite NEG (NEG) Ur Leukocyte Esterase NEG (NEG) Urine RBC 0-2 (0) /HPF Urine WBC 0 (0-4) /HPF Ur Squamous Epith Cells 1+ /LPF Urine Bacteria NONE /LPF Urine Test NEGATIVE (NEGATIVE) Stool Occult Blood (NEGATIVE) COVID-19 (SHAKIR) (Negative) COVID-19 Clin Com <Juan Sanders MD - Last Filed: 07/06/21 06:46> ECG Data Attestation: I personally reviewed and interpreted this ECG as follows: <MULU Sheppard - Last Filed: 07/04/21 15:45> Interpretation: EKG sinus tachycardia rate of 102. TX interval 124. QTC 58. No STEMI <MULU Sheppard - Last Filed: 07/04/21 15:45> Discharge Plan Discharge Clinical Impression: Nausea & vomiting, Diarrhea, Abdominal pain <MULU Sheppard Last Filed: 07/04/21 15:45> Patient Disposition: Home, Self-Care <MULU Sheppard Last Filed: 07/04/21 15:45> Instructions: Abdominal Pain (ED) <MULU Sheppard Last Filed: 07/04/21 15:45> Additional Instructions: Your blood work showed evidence of dehydration as well as elevation of her pancreatic enzymes which is consistent with your nausea/vomiting and abdominal pain Your CT scan is unremarkable Practice a bland diet, avoid spicy food, sweets, chocolate, caffeine Maalox will help with acid reduction. Bentyl isn't abdominal anti spasmodic which will help her abdominal pain Reglan as an antinausea medication, take as needed If you are unable to eat or drink, have persistent nausea/vomiting, persistent diarrhea, bloody diarrhea or black stool please return to the emergency department Please follow-up with your doctor <MULU Shepprad - Last Filed: 07/04/21 15:45> Prescriptions: New alum-mag hydroxide-simeth [Maalox Advanced] 200-200-20 mg/5 mL suspension 5 ml PO 5XD PRN (Reason: dyspepsia) Qty: 30 RF: 0 dicyclomine 20 mg tablet 20 mg PO QID Qty: 14 RF: 0 metoclopramide HCl [Reglan] 10 mg tablet 10 mg PO Q6H PRN (Reason: nausea and vomiting) Qty: 10 RF: 0 No Action ondansetron 4 mg tablet,disintegrating 4 mg PO Q8H PRN (Reason: nausea and vomiting) Qty: 30 RF: 0 levofloxacin 500 mg tablet 500 mg PO DAILY Qty: 7 RF: 0 metronidazole 500 mg tablet 500 mg PO TID 7 Days Qty: 21 RF: 0 ascorbic acid (vitamin C) 250 mg tablet 1 tab PO DAILY RF: 0 ergocalciferol (vitamin D2) 1,250 mcg (50,000 unit) capsule PO RF: 0 buprenorphine-naloxone [Suboxone] 2-0.5 mg film 3 strip sublingual BEDTIME RF: 0 loratadine [Claritin] 10 mg tablet 10 mg PO DAILY Qty: 30 RF: 2 cromolyn 100 mg/5 mL concentrate 200 mg PO QID 30 Days Qty: 1200 RF: 3 famotidine [Pepcid] 40 mg tablet 40 mg PO BEDTIME Qty: 30 RF: 2 polyethylene glycol 3350 [Miralax] 17 gram/dose powder 238 g PO ONCE 1 Days Qty: 238 RF: 0 bisacodyl [Dulcolax (bisacodyl)] 5 mg tablet,delayed release (DR/EC) 10 mg PO ONCE 1 Days Qty: 2 RF: 0 buprenorphine-naloxone [Suboxone] 8-2 mg film 1 film buccal DAILY@0730 RF: 0 ferrous sulfate 325 mg (65 mg iron) tablet,delayed release (DR/EC) 325 mg PO DAILY RF: 0 wuqmjtmfiz-dwnvzyivwvhij-hduk 50-325-40 mg tablet 0 tab PO RF: 0 <MULU Sheppard - Last Filed: 07/04/21 15:45> Referrals: Deandre Garnett MD [Physician] - 3 days <MULU Sheppard - Last Filed: 07/04/21 15:45> Interventions: ED Discharge Assessment Last Done: 07/04/21 16:47 <MULU Sheppard - Last Filed: 07/04/21 15:45> Discharge Date/Time: 07/04/21 16:49 <MULU Sheppard - Last Filed: 07/04/21 15:45>
[2021-07-04 11:50] LABS: Lactic Acid 1.4 mmol/L (0.5-2.0)
[2021-07-04] MEDS: 0.9 % Sodium Chloride 1,000 ML 999 ML IV ×2 (12:07)
[2021-07-04] MEDS: Magnesium Hydrox/Alum Hydrox 30 ML ORAL.SUSP PO (12:08)
[2021-07-04] MEDS: Magnesium Sulfate/H2O 2 GM/50 ML PIGGYBACK IV (12:08)
[2021-07-04] MEDS: Famotidine/PF 20 MG/2 ML VIAL IVPUSH (12:08)
[2021-07-04] MEDS: Lidocaine HCl Viscous 2 % 15 ML SOLUTION MUCOUS MEM (12:08)
[2021-07-04] MEDS: Metoclopramide HCl 10 MG/2 ML VIAL IVPUSH (12:08)
[2021-07-04] MEDS: Ketorolac Tromethamine 30 MG/ML VIAL 15 MG IVPUSH (12:08)
[2021-07-04 12:21] LABS: OBS Int Ctl Valid YES; OBS1 NEGATIVE (NEGATIVE)
[2021-07-04] MEDS: iohexoL 350 MG/ML 100 ML INFUS..BTL IV (13:33)
[2021-07-04 14:24] VITALS: BP 112/72; PULSE 107; RESP 15; O2SAT 96
[2021-07-04 15:23] LABS: Appearance Urine CLEAR; Color Urine YELLOW; Glucose Urine UA NEG (NEG); Leukocyte Esterase Urine NEG (NEG); Nitrite Urine NEG (NEG); Specific Gravity - Urine <= 1.005 (1.005-1.025); UACC Culture Trigger NO; Urine Blood 3+ (NEG); Urine Ketones NEG (NEG); Urine Protein TRACE MG/DL (NEG-TRACE)
[2021-07-04 15:35] LABS: Squamous Epithelial Cell Urine 1+ /LPF
[2021-07-04 15:37] LABS: Anion Gap 14 (12-20); Blood Urea Nitrogen 9 mg/dL (9-16); Calcium 9.7 mg/dL (8.4-10.2); Carbon Dioxide 33 mmol/L (22-29); Chloride 93 mmol/L (96-108); Creatinine Clr Calc Pharmacy 78.8; Estimated Glomerular Filt Rate > 60; Glucose Random 105 mg/dL (60-115); Potassium 3.7 mmol/L (3.3-5.1); Sodium 136 mmol/L (135-145)
[2021-07-04 15:39] LABS: RBC Urine 0-2 /HPF (0); WBC Urine 0 /HPF (0-4)
[2021-07-04 15:43] LABS: UPreg QC Valid YES; Urine Pregnancy NEGATIVE (NEGATIVE)
== END 2021-07-04 16:49 | disposition home or self-care (01) ==
PROVIDERS: Physician Assistant; Emergency Provider Emergency Medicine
DX: R10.9 Unspecified abdominal pain (principal); R11.2 Nausea with vomiting, unspecified; R53.1 Weakness; R07.9 Chest pain, unspecified; F12.90 Cannabis use, unspecified, uncomplicated; Z20.822 Contact with and (suspected) exposure to COVID-19; Z79.899 Other long term (current) drug therapy; Z87.891 Personal history of nicotine dependence
CPT/HCPCS: 36415; 74177; 80048; 80053; 81001; 81025; 82272; 83605; 83690; 83735; 85027; 87040; 87635; 96360; 96365; 96375; 96376; 99283; 99284; J1885; J2765; J3475; Q9967

== ENCOUNTER → 2021-10-04 10:21 | Outpatient (BNVA) | payer MEDICAID, SELFPAY | PROVIDERS: PCP Family Medicine; Referring Provider Family Medicine; Visit Provider Internal Medicine Gastroenterology | DX: Z13.89 Encounter for screening for other disorder (principal) ==

== ENCOUNTER → 2021-10-15 08:31 | Outpatient (BNVA) | payer MEDICAID, SELFPAY | PROVIDERS: PCP Family Medicine; Referring Provider Family Medicine; Visit Provider Internal Medicine Gastroenterology | DX: D64.9 Anemia, unspecified (principal) | CPT/HCPCS: 91110 ==

== ENCOUNTER 2021-12-07 11:47 | Outpatient (REF) | payer MEDICAID, SELFPAY ==
[2021-12-07 12:04] LABS: MANUAL DIFF FLAG NO
[2021-12-07 12:35] LABS: Basophils Percent Auto 0.5 % (0-2); Eosinophils Percent Auto 0.2 % (0-4); Hematocrit 25.7 % (37.0-47.0); Hemoglobin 8.6 g/dl (12.0-16.0); Imm Gran Abs Auto 0.02 X10*3/uL (0.00-0.03); Imm Gran Pct Auto 0.5 % (0.0-0.4); Lymphocytes Absolute Auto 1.1 X10*3/uL (1.2-4.9); Lymphocytes Percent Auto 26.7 % (20-40); Mean Corpuscular HGB Conc 33.5 g/dl (31.0-35.0); Mean Corpuscular Hemoglobin 33.5 pg (27.0-33.0); Mean Platelet Volume 9.7 fL (9.4-12.3); Monocytes Absolute Auto 0.8 X10*3/uL (0.1-1.2); Neutrophils Absolute Auto 2.1 x10*3/uL (2.0-8.3); Neutrophils Percent Auto 52.1 % (45-73); Platelet Count 368 X10*3/uL (160-400); Red Blood Count 2.57 X10*6/uL (4.20-5.50); Red Cell Distribution Width 18.2 % (11.0-16.0)
[2021-12-07 12:54] LABS: Alanine Aminotransferase 21 U/L (0-31); Albumin Level 3.8 g/dL (3.5-5.0); Alkaline Phosphatase 57 U/L (39-117); Anion Gap 12 (12-20); Aspartate Amino Transferase 57 U/L (5-31); Bilirubin Total 0.7 mg/dL (0.0-1.0); Blood Urea Nitrogen 6 mg/dL (9-16); C Reactive Protein 0.13 mg/dL (< or = 0.50); Calcium 9.1 mg/dL (8.4-10.2); Carbon Dioxide 31 mmol/L (22-29); Chloride 97 mmol/L (96-108); Estimated Glomerular Filt Rate > 60; Glucose Random 105 mg/dL (60-115); Potassium 3.4 mmol/L (3.3-5.1); Sodium 137 mmol/L (135-145); Total Protein 5.8 g/dL (6.5-8.0)
[2021-12-09 14:56] LABS: Alpha 1 Anti-trypsin 153 mg/dL (83-199)
[2021-12-10 17:46] LABS: Histamine Plasma <1.5 ng/mL (< OR = 1.8)
== END 2021-12-07 11:48 | disposition home or self-care (01) ==
LOC: HO.LAB 11:47
PROVIDERS: PCP Family Medicine; Visit Provider Internal Medicine Gastroenterology
DX: K75.81 Nonalcoholic steatohepatitis (NASH) (principal); K52.9 Noninfective gastroenteritis and colitis, unspecified; D89.40 Mast cell activation, unspecified
CPT/HCPCS: 36415; 80053; 82103; 83088; 83520; 85025; 86140

== ENCOUNTER 2022-04-29 13:24 | Inpatient (IN) | payer MEDICAID, SELFPAY ==
[2022-04-29] VITALS (17 sets, daily range): BP systolic 76–150; BP diastolic 39–132; PULSE 91–175; RESP 10–24; TEMP 36.9–39.4; O2SAT 95–100; BMI 27.1; BMI 23.9
--- NOTE | ~2022-04-29 | CT_ITS ---
EXAMINATION: CT CHEST WITHOUT CONTRAST CT ABDOMEN AND PELVIS WITHOUT CONTRAST CLINICAL INFORMATION: OST CODE. COMPARISON: 04/29/2022. TECHNIQUE: Multidetector volumetric imaging was performed from the thoracic inlet through the pubic without intravenous contrast material. Sagittal and coronal images were reformatted. This CT examination was performed using dose optimization techniques as appropriate, variously including the following: *Automated exposure control *Adjustment of mA and/or kV according to patient size (this includes techniques or standardized protocols for targeted exams where dose is matched to indication/reason for exam; i.e. extremities or head) *Use of iterative reconstruction technique DOSE: 2044 mGy-cm FINDINGS: -CHEST- LUNG: There is dense dependent airspace consolidation in both lungs with more patchy alveolar opacities in the remainder of both lungs, most consistent with severe pulmonary alveolar edema. Interlobular septal thickening is also noted, consistent with interstitial edema. Central airways are clear. ET tube is in place, though situated at the right mainstem bronchus, similar to prior. MEDIASTINUM: Right IJ central venous catheter tip terminates at the cavoatrial junction. Heart is normal in size. No pericardial effusion. No mediastinal or hilar adenopathy. Small sliding-type hiatal hernia with postsurgical changes of a Roman fundoplication. PERICARDIUM/PLEURA: No significant effusion. No pleural mass or thickening. CHEST WALL/AXILLA: There are nondisplaced fractures of the right third, fourth, fifth, and sixth ribs anteriorly as well as the left fifth and sixth ribs anteriorly. Sensitivity for subtle rib fractures is limited by respiratory motion. No hematomas. No axillary adenopathy. No appreciable sternal fracture, though sensitivity is limited by motion artifact. -ABDOMEN/PELVIS- LIVER, GALLBLADDER, BILIARY TREE: Severe hepatic steatosis. Multifocal gas is evident within the intrahepatic vasculature, notably within the hepatic veins. The distribution does not correspond to the portal veins. No appreciable portal venous gas within the mesentery. No focal hepatic lesions. Liver is enlarged, measuring 25 cm in length. Gallbladder is surgically absent. PANCREAS: Normal; no mass or surrounding fluid. SPLEEN: Normal size. There is no appreciable splenic enhancement, though the spleen enhance normally on the prior study. ADRENAL GLANDS: Normal; no mass. KIDNEYS AND URETERS: There is abnormal rotation of the right kidney. Kidneys normal in size and contour. No focal lesions are identified. No nephrolithiasis or hydronephrosis. BLADDER: Swartz catheter and gas are evident within the bladder. No bladder wall thickening. GASTROINTESTINAL TRACT: Status post Roman fundoplication. Small associated hiatal hernia. There is focal gaseous distention of the second and third portions of the duodenum with narrowing of the duodenum as it passes over the abdominal aorta below the SMA. Distal small bowel is normal in caliber. There is intraluminal gas throughout the transverse colon, though it is within normal limits in size. No wall thickening. No pneumatosis or surrounding inflammatory changes. Appendix is normal. No intraperitoneal free air or free fluid. ABDOMINAL WALL: No significant hernia is appreciated. VASCULATURE: Of note, the celiac axis is diminutive, likely with a component of median arcuate ligament compression at its origin. The hepatic artery is also diminutive and is not well seen at its intrahepatic extent. Adjacent distended segment of duodenum produces mass effect upon the common hepatic artery. No replaced hepatic artery anatomy identified. SMA is normal. Portal vein is patent. Minimal contrast is evident within the splenic vein. LYMPH NODES: No lymphadenopathy. . PELVIC VISCERA: The uterus and adnexa are unremarkable. OSSEUS STRUCTURES: Unremarkable. 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 A superimposed process is possible as there is no significant post stenotic dilatation. Additional compromise of the celiac axis blood supply suspected as there is no appreciable enhancement of the spleen and no appreciable contrast enhancement of the hepatic vein, suggesting splenic infarction. Arterial blood flow to the liver is also likely compromised. Hepatic venous gas may be related to this vascular compromise, though quite atypical. * Severe pulmonary edema * ET tube terminates at the right mainstem bronchus, similar to prior * Small sliding type hiatal hernia with postsurgical changes of prior fundoplication. Hepatomegaly and marked hepatic steatosis. This critical result was discussed by telephone with Suze Clayton NP on 04/30/2022 at 2:43 AM.
--- NOTE | ~2022-04-29 | CT_ITS ---
EXAMINATION: CT HEAD WITHOUT CONTRAST CLINICAL INFORMATION: POST CODE COMPARISON: 04/29/2022 TECHNIQUE: Contiguous axial imaging was performed of the head without the administration of IV contrast. This CT examination was performed using dose optimization techniques as appropriate, variously including the following: *Automated exposure control *Adjustment of mA and/or kV according to patient size (this includes techniques or standardized protocols for targeted exams where dose is matched to indication/reason for exam; i.e. extremities or head) *Use of iterative reconstruction technique Dose: 700 mGy-cm FINDINGS: There is no evidence of acute intracranial hemorrhage or territorial infarction. No abnormal mass-effect or midline shift is seen. Chakraborty to white matter differentiation is well preserved. No extra axial fluid collections. The ventricles are normal in size and configuration. There is no abnormal attenuation within the brain parenchyma. The soft tissues and osseous structures are normal. Layering fluid is again seen within the right maxillary sinus. CT/CT head/brain wo IV con IMPRESSION: No acute intracranial pathology. Unchanged layering fluid within the right maxillary sinus. Recommend correlation for acute rhinosinusitis
--- NOTE | ~2022-04-29 | XR_ITS ---
EXAMINATION: XR CHEST CLINICAL INFORMATION: Cough. Pneumonia COMPARISON: None TECHNIQUE: Frontal view of the chest was obtained. FINDINGS: Lungs clear. Heart and pulmonary vessels are normal. No congestive change. Lungs are clear. XR/XR chest 1V IMPRESSION: No active disease.
--- NOTE | ~2022-04-29 | XR_ITS ---
EXAMINATION: XR CHEST CLINICAL INFORMATION: ET tube/line. COMPARISON: 04/29/2022 TECHNIQUE: Frontal view of the chest was obtained. FINDINGS: ET tube terminates in the right mainstem bronchus. Right IJ central venous catheter tip terminates over the cavoatrial junction. EKG leads and defibrillator pads overlie the chest. Diffuse interstitial and airspace opacities are present in both lungs, most concerning for pulmonary interstitial and alveolar edema. No pneumothorax or pleural effusion. Cardiac and mediastinal contours are normal. No acute osseous findings. XR/XR chest 1V IMPRESSION: 1. ET tube terminates in the right mainstem bronchus. Recommend retraction by 3.5 cm. 2. Diffuse interstitial and airspace opacities in both lungs, most concerning for pulmonary interstitial and alveolar edema. Multifocal pneumonia is also possible.
--- NOTE | ~2022-04-29 | CT_ITS ---
EXAMINATION: CT ABDOMEN AND PELVIS WITH CONTRAST CLINICAL INFORMATION: Left-sided abdominal pain, history of colitis COMPARISON: CT abdomen pelvis 07/04/2021 TECHNIQUE: Multidetector volumetric images were obtained from the superior aspect of the liver through the pubic symphysis following administration 85 mL of Omnipaque 350 intravenous contrast. Sagittal and coronal reformatted images were obtained on the technologist's workstation. Oral contrast: No This CT examination was performed using dose optimization techniques as appropriate, variously including the following: *Automated exposure control *Adjustment of mA and/or kV according to patient size (this includes techniques or standardized protocols for targeted exams where dose is matched to indication/reason for exam; i.e. extremities or head) *Use of iterative reconstruction technique DLP: 482 mGy-cm FINDINGS: LUNG BASES: Unremarkable. ABDOMINAL AND PELVIC WALL: Unremarkable. LIVER AND BILIARY TREE: Markedly hypoattenuating hepatic parenchyma compatible with hepatic steatosis progressed from recent prior. Liver is enlarged and measures 23.1 cm in span, previously 20.7 cm in span. GALLBLADDER: Status post cholecystectomy. PANCREAS: Unremarkable. SPLEEN: Unremarkable. ADRENAL GLANDS: Unremarkable. 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 Left kidney is unremarkable. GASTROINTESTINAL TRACT: Moderate hiatal hernia. A 2.0 x 2.0 cm soft tissue lesion is noted in the anti--dependent portion of the hernia sac which contains few foci of gas, unclear if this could reflect retained gastric products or potentially a gastric mass given the anti--dependent location, and correlation with endoscopy is recommended. Large and small bowel are unremarkable. Normal appendix. VASCULAR: Unremarkable. LYMPH NODES/PERITONEUM: No lymphadenopathy. FREE FLUID: None. BLADDER: Unremarkable. PELVIC VISCERA: Unremarkable. OSSEOUS STRUCTURES: Unremarkable. CT/CT abdomen pelvis w IV con IMPRESSION: Moderate hiatal hernia with a 2.0 cm soft tissue lesion noted in the anti--dependent portion of the hernia sac which contains few foci of gas, unclear if this could reflect retained gastric products or a primary gastric mass given the anti--dependent location, and correlation with endoscopy is recommended. Markedly hypoattenuating hepatic parenchyma compatible with hepatic steatosis progressed from prior and hepatomegaly progressed from prior.
--- NOTE | ~2022-04-29 | CT_ITS ---
EXAMINATION: CT head/brain wo IV con CLINICAL INFORMATION: Reason for Exam Seizure, rule out bleed, stroke COMPARISON: None. TECHNIQUE: Contiguous axial imaging was performed from the skull base to vertex without intravenous contrast. Sagittal and coronal reformatted images were obtained. This CT examination was performed using dose optimization techniques as appropriate, variously including the following: * Automated exposure control * Adjustment of mA and/or kV according to patient size (this includes techniques or standardized protocols for targeted exams where dose is matched to indication/reason for exam; i.e. extremities or head) Use of iterative reconstruction technique DLP: 1103 mGy-cm FINDINGS: No acute osseous or soft tissue abnormality. The mastoids are clear. Small layering fluid in right maxillary sinus. There is no evidence of acute intracranial hemorrhage or territorial infarction. No abnormal mass effect or midline shift is seen. Chakraborty to white matter differentiation is well preserved. No extra-axial fluid collections are identified. No hydrocephalus. No significant volume loss. There is no abnormal attenuation within the brain parenchyma. CT/CT head/brain wo IV con IMPRESSION: 1. No acute intracranial abnormality including hemorrhage, mass effect, hydrocephalus, or acute territorial edematous infarction. 2. Small layering fluid in right maxillary sinus. Correlate clinically for acute sinusitis.
--- NOTE | 2022-04-29 14:09 | ED.SEIZURE ---
HPI - Seizure General Chief Complaint: Seizure Stated Complaint: WIT SZ, NO HX PER EMS Time Seen by Provider: 04/29/22 13:53 Source: patient and family (, Christiano) Mode of arrival: EMS Limitations: no limitations History of Present Illness HPI Narrative: 36-year-old female who presents emergency department for evaluation of seizure like activity. The patient states she has a history of colitis. She states that over the last 2 weeks her colitis is been acting up. She states that she is having constant abdominal pain and she points to her left lower quadrant when asked to localize the pain. She describes the pain as a ?pain ?which is 10/10. She states she has had constant diarrhea which is dark and watery with no blood in it. She states she has been vomiting multiple times a day and she has had no appetite and has not been able to eat secondary to her pain. She states that she was sitting in a chair watching TV and then does not remember what happened. Her , Christiano, who was here in the emergency department was in another room heard the dogs barking and went into the room and found that the patient was shaking uncontrollably and she was drooling. He states that he put a spoon in her mouth. The shaking episode lasted approximately 60 seconds. When the shaking resolved the patient had her eyes open but was staring and not focusing on anything, this lasted approximately 4-5 minutes then the patient slowly woke up and became back to normal. The patient states that she had a seizure 2 years prior and had a workup which included CT scan, MRI and EEG which were unremarkable. She was never started on anti seizure medications. The patient states that she does drink alcohol daily she drinks 1-2 pt of rum per day and did drink alcohol prior to coming to the emergency department. The patient states that she has a history of opiate abuse and used to take oxycodone and OxyContin but has not used in over 6 years. She states that she has been on Suboxone for 5-6 years and takes 8 mg/2 mg in the morning and 2 mg at night. Related Data Home Medications Medication Instructions Recorded Confirmed buprenorphine 8 mg-naloxone 2 mg 1 film buccal DAILY@0730 12/02/20 12/31/20 sublingual film (Suboxone) ascorbic acid (vitamin C) 250 mg 1 tab PO DAILY 12/31/20 12/31/20 tablet buprenorphine 2 mg-naloxone 0.5 mg 3 strip sublingual BEDTIME 12/31/20 12/31/20 sublingual film (Suboxone) ergocalciferol (vitamin D2) 1,250 PO 12/31/20 12/31/20 mcg (50,000 unit) capsule egzfcgelce-cupklyzhffaqx-phejshll 0 tab PO 06/08/21 50 mg-325 mg-40 mg tablet Previous Rx's Medication Instructions Recorded famotidine 40 mg tablet (Pepcid) 40 mg PO BEDTIME #30 tabs 02/09/21 loratadine 10 mg tablet (Claritin) 10 mg PO DAILY #30 tabs 02/09/21 aluminum-mag hydroxide-simethicone 5 ml PO 5XD PRN dyspepsia #30 mL 07/04/21 200 mg-200 mg-20 mg/5 mL oral susp (Maalox Advanced) bisacodyl 5 mg tablet,delayed 10 mg PO ONCE 1 day #2 tabs 10/04/21 release (Dulcolax (bisacodyl)) polyethylene glycol 3350 17 238 g PO ONCE 1 day #238 grams 10/04/21 gram/dose oral powder (Miralax) levofloxacin 500 mg tablet 500 mg PO DAILY #7 tabs 11/05/21 metronidazole 500 mg tablet 500 mg PO TID 7 days #21 tabs 11/05/21 ondansetron 4 mg disintegrating 4 mg PO Q8H PRN nausea and 03/23/22 tablet vomiting #30 tabs Allergies Allergy/AdvReac Type Severity Reaction Status Date / Time amitriptyline [From Elavil] Allergy Severe NERVE Verified 10/04/21 10:21 DAMAGE HANDS methadone [METHADONE] Allergy Intermediate VOMITING Verified 10/04/21 10:21 acetaminophen [From TYLENOL] AdvReac Intermediate STOMACH Verified 10/04/21 10:21 UPSET ibuprofen [From MOTRIN] AdvReac Intermediate GI UPSET Verified 10/04/21 10:21 strawberries Allergy Unknown Hives Uncoded 10/04/21 10:21 Review of Systems Review of Systems: Yes all other systems are reviewed and are negative [facility] Past Medical History [facility] Narrative: Social history: The patient is lives at home with her children and her . The patient drinks 1-2 pt of rum per day, last drink was prior to coming to the emergency department. Patient has a history of oxycodone and OxyContin use disorder, has not used in 5-6 years, she states she has been in a Suboxone program for 5-6 years. Medical History Anemia Back pain Chronic diarrhea Colitis Hx of congenital abnormality Hx of hypoglycemia Hx of renal calculi Migraines Surgical History H/O colonoscopy History of esophagogastroduodenoscopy (EGD) History of Roman fundoplication History of pyloroplasty Hx laparoscopic cholecystectomy Hx of section Hx of tooth extraction Hx of tubal ligation Family History Family History Father Diabetes Mother Hypertension Social History Social History Household Members Other:: - - 2 children, oldest daughter - Alcohol intake: former Patient Tobacco Use Status: Former Tobacco user Quit Date: 2015 Substance Use Type: Marijuana Advance Directives: No Advance Directives Information Provided: Yes Current occupational status: disabled Physical Exam Vital Signs: Vital Signs: Last Vital Signs Temp 98.9 F 04/29/22 16:25 Pulse 144 H 04/29/22 16:25 Resp 10 L 04/29/22 16:25 BP 125/76 04/29/22 16:25 Pulse Ox 97 04/29/22 16:25 O2 Del Method 04/29/22 16:25 BMI result Body Mass Index 27.1 Const: General: cooperative and no acute distress Orientation/consciousness: oriented to person and oriented to place Limitations: no limitations HEENT: Head: Yes normal to inspection, Yes normocephalic and Yes atraumatic Ears: external ears normal General nose exam: Normal external nose present Face and sinus: Yes normal facial exam Mouth: Normal oral and palatal mucosa present Throat: Yes posterior oropharynx normal Eyes: General: appearance normal, both eyes and all related structures Pupils: Equal, round and reactive pupils present Neck: Neck: Yes normal visual inspection, Yes no lymphadenopathy, Yes trachea midline and Yes supple Chest: Chest palpation & inspection: normal inspection of the chest and normal palpation of entire chest wall Resp: Effort & Inspection: normal respiratory effort and able to speak in complete sentences Auscultation: clear to auscultation bilaterally Cardio: Rate: regular rate Rhythm: regular rhythm Heart sounds: S1 normal heart sound present, S2 normal heart sound present and no murmurs GI: Inspection: Yes normal to inspection and Yes distended Palpation (GI): Soft to palpation, Tenderness to palpation present (GI) in the epigastrum (Mild), in the LLQ (Moderate) and suprapubicly (Moderate) and no guarding Auscultation: High-pitched bowel sounds present : General: Yes no CVA tenderness Back/Spine/Pelvis: Back: no CVA tenderness Skin: General skin exam: no rashes or lesions noted Neuro: General: oriented to person and oriented to place Cranial nerves: Yes CN's II-XII intact bilaterally and Yes Equal, round and reactive pupils present Cognition (Neuro): normal cognition Motor exam (neuro): 5/5 motor strength present throughout Extrem: General: Yes normal to inspection Psych: Appearance: grossly normal Speech and movement: Normal speech and movement present Affect: normal affect Attitude: cooperative Thought process: Normal thought process present Thought content: Normal thought content present Course Course Course Narrative: 36-year-old female who presents emergency department for possible seizure-like activity at home which was witnessed by the . Patient remembers watching TV and then waking up on the floor. The describes that he was not in the room initially but when he went in the patient's room she was shaking uncontrollably and this lasted approximately 30-60 seconds. The patient then was staring off it does space and appeared to be postictal for approximately 5 minutes and then gradually return to normal. Patient has a history of colitis and she states that her colitis is been acting up over the past 2 weeks. Patient is complaining of lower abdominal pain left greater than right which is been constant and 10/10. She has had nausea vomiting and persistent diarrhea associated with her abdominal pain. Patient does have a history of opiate abuse and is on Suboxone. She also drinks 1-2 pt of rum per day and was drinking prior to coming to the emergency department. Vital signs revealed elevated heart rate of 130 otherwise unremarkable. Neurologic exam was nonfocal. Patient does have left lower lower abdominal tenderness, she appears to be distended does have high-pitched bowel sounds. I did order laboratory evaluation, CT scan of the head without contrast and CT scan of the abdomen pelvis with IV contrast. Patient was treated with normal saline IV x1 L, Dilaudid 1 mg IV, Benadryl 25 mg of IV and Zofran 4 mg IV. 1706: Patient's laboratory evaluation reveals significant electrolyte abnormalities including sodium 124, potassium 2.9, chloride 72, bicarb 37. Patient also had an elevated AST and ALT of 201 and 73. CPK was also elevated at 747. Lactic acid was elevated 4.0 but this is most likely secondary to her seizure. I am concerned that her seizure may be secondary to her hyponatremia. The patient only received 100 mL of her normal saline infusion. At the end of my shift, the patient's CT scans are pending. The patient's care was turned over to my colleague, Dr. Ramona Fontaine. Medications Administered Discontinued Medications Generic Name Dose Route Start Last Admin Trade Name Freq PRN Reason Stop Dose Admin Diphenhydramine HCl 25 mg 04/29/22 14:09 04/29/22 14:50 Diphenhydramine Hcl 50 Mg/Ml Vial IVPUSH 04/29/22 14:10 25 mg ONCE STA Administration Hydromorphone HCl 1 mg 04/29/22 14:09 04/29/22 14:51 Hydromorphone Hcl 1 Mg/Ml Syringe IVPUSH 04/29/22 14:10 1 mg ONCE STA Administration Protocol Sodium Chloride 1,000 mls @ 999 mls/hr 04/29/22 14:09 04/29/22 14:53 Ns IV 04/29/22 15:09 999 mls/hr .Q1H1M STA Administration Iohexol 100 ml 04/29/22 16:59 04/29/22 17:00 Iohexol 350 Mg/Ml 100 Ml Infus..Btl IV 04/29/22 17:00 85 ml ONCE ONE Administration Ondansetron HCl 4 mg 04/29/22 14:09 04/29/22 14:50 Ondansetron Odt 4 Mg Tab.Rapdis TRANSLINGU 04/29/22 14:10 4 mg ONCE STA Administration MDM - Seizure Lab Data Result diagrams: 04/29/22 15:56 04/29/22 15:56 Labs: Lab Results 04/29/22 04/29/22 04/29/22 Range/Units 15:56 15:56 15:56 WBC 7.1 (4.8-10.8) X10*3/uL RBC 3.50 L D (4.20-5.50) X10*6/uL Hgb 11.6 L D (12.0-16.0) g/dl Hct 32.1 L D (37.0-47.0) % MCV 91.7 (80.0-98.0) fL MCH 33.1 H (27.0-33.0) pg MCHC 36.1 H (31.0-35.0) g/dl RDW 27.9 H (11.0-16.0) % Plt Count 164 D (160-400) X10*3/uL MPV 9.4 (9.4-12.3) fL Immature Gran % (Auto) 1.0 H (0.0-0.4) % Neut % (Auto) 83.9 H (45-73) % Lymph % (Auto) 9.3 L (20-40) % [place] % (Auto) 5.5 (2-11) % Eos % (Auto) 0.0 (0-4) % Baso % (Auto) 0.3 (0-2) % Lymph # (Auto) 0.7 L (1.2-4.9) X10*3/uL [place] # (Auto) 0.4 (0.1-1.2) X10*3/uL Eos # (Auto) 0.0 (0.0-0.4) X10*3/uL Baso # (Auto) 0.0 (0.0-0.2) X10*3/uL Abs Immat Gran (auto) 0.07 H (0.00-0.03) X10*3/uL Absolute Neuts (auto) 6.0 (2.0-8.3) x10*3/uL Absolute Nucleated RBC 0.000 (0.0-0.012) X10*3/uL Nucleated RBC % (auto) 0.0 (0.0-0.2) /100WBC PT 16.3 H (10.0-13.1) SEC INR 1.4 H (0.9-1.1) APTT 29.4 (26.0-36.4) SEC Sodium 124 L (135-145) mmol/L Potassium 2.9 L (3.3-5.1) mmol/L Chloride 72 L D (96-108) mmol/L Carbon Dioxide 37 H (22-29) mmol/L Anion Gap 18 (12-20) BUN < 3 L (9-16) mg/dL Creatinine 0.68 (0.5-1.4) mg/dL Estim Creat Clear Calc 102.8 Estimated GFR > 60 Random Glucose 112 (60-115) mg/dL Lactic Acid (0.5-2.0) mmol/L Calcium 8.3 L D (8.4-10.2) mg/dL Total Bilirubin 3.4 H (0.0-1.0) mg/dL AST 201 H (5-31) U/L ALT 73 H (0-31) U/L Alkaline Phosphatase 125 H (39-117) U/L Total Creatine Kinase 747 H (26-140) U/L Total Protein 6.4 L (6.5-8.0) g/dL Albumin 4.0 (3.5-5.0) g/dL Lipase 38 (8-78) U/L Beta HCG, Quant < 2 mIU/mL Urine Color Urine Appearance Urine pH (5.0-9.0) Ur Specific [place] (1.005-1.025) Urine Protein (Neg-Trace) mg/dL Urine Glucose (UA) (Negative) mg/dL Urine Ketones (Negative) mg/dL Urine Blood (Negative) Urine Nitrite (Negative) Ur Leukocyte Esterase (Negative) Urine RBC (0-2) /HPF Urine WBC (0-5) /HPF Ur Squamous Epith Cells (0-2) /HPF Urine Bacteria (None Seen) Hyaline Casts (0-2) /LPF Urine Opiates Screen (Not Detect) Urine Fentanyl Screen (Not Detect) Ur Barbiturates Screen (Not Detect) Ur Phencyclidine Scrn (Not Detect) Ur Amphetamines Screen (Not Detect) U Benzodiazepines Scrn (Not Detect) Urine Cocaine Screen (Not Detect) U Marijuana (THC) Screen (Not Detect) Ethyl Alcohol < 10 mg/dL COVID-19 (SHAKIR) (Negative) COVID-19 Clin Com Influenza Type A (CARRIE) (Negative) Influenza Type B (CARRIE) (Negative) Influenza A & B Note 04/29/22 04/29/2204/29/22 Range/Units 15:56 15:56 15:56 WBC (4.8-10.8) X10*3/uL RBC (4.20-5.50) X10*6/uL Hgb (12.0-16.0) g/dl Hct (37.0-47.0) % MCV (80.0-98.0) fL MCH (27.0-33.0) pg MCHC (31.0-35.0) g/dl RDW (11.0-16.0) % Plt Count (160-400) X10*3/uL MPV (9.4-12.3) fL Immature Gran % (Auto) (0.0-0.4) % Neut % (Auto) (45-73) % Lymph % (Auto) (20-40) % [place] % (Auto) (2-11) % Eos % (Auto) (0-4) % Baso % (Auto) (0-2) % Lymph # (Auto) (1.2-4.9) X10*3/uL [place] # (Auto) (0.1-1.2) X10*3/uL Eos # (Auto) (0.0-0.4) X10*3/uL Baso # (Auto) (0.0-0.2) X10*3/uL Abs Immat Gran (auto) (0.00-0.03) X10*3/uL Absolute Neuts (auto) (2.0-8.3) x10*3/uL Absolute Nucleated RBC (0.0-0.012) X10*3/uL Nucleated RBC % (auto) (0.0-0.2) /100WBC PT (10.0-13.1) SEC INR (0.9-1.1) APTT (26.0-36.4) SEC Sodium (135-145) mmol/L Potassium (3.3-5.1) mmol/L Chloride (96-108) mmol/L Carbon Dioxide (22-29) mmol/L Anion Gap (12-20) BUN (9-16) mg/dL Creatinine (0.5-1.4) mg/dL Estim Creat Clear Calc Estimated GFR Random Glucose (60-115) mg/dL Lactic Acid 4.0 H* (0.5-2.0) mmol/L Calcium (8.4-10.2) mg/dL Total Bilirubin (0.0-1.0) mg/dL AST (5-31) U/L ALT (0-31) U/L Alkaline Phosphatase (39-117) U/L Total Creatine Kinase (26-140) U/L Total Protein (6.5-8.0) g/dL Albumin (3.5-5.0) g/dL Lipase (8-78) U/L Beta HCG, Quant mIU/mL Urine Color Urine Appearance Urine pH (5.0-9.0) Ur Specific [place] (1.005-1.025) Urine Protein (Neg-Trace) mg/dL Urine Glucose (UA) (Negative) mg/dL Urine Ketones (Negative) mg/dL Urine Blood (Negative) Urine Nitrite (Negative) Ur Leukocyte Esterase (Negative) Urine RBC (0-2) /HPF Urine WBC (0-5) /HPF Ur Squamous Epith Cells (0-2) /HPF Urine Bacteria (None Seen) Hyaline Casts (0-2) /LPF Urine Opiates Screen (Not Detect) Urine Fentanyl Screen (Not Detect) Ur Barbiturates Screen (Not Detect) Ur Phencyclidine Scrn (Not Detect) Ur Amphetamines Screen (Not Detect) U Benzodiazepines Scrn (Not Detect) Urine Cocaine Screen (Not Detect) U Marijuana (THC) Screen (Not Detect) Ethyl Alcohol mg/dL COVID-19 (SHAKIR) Negative (Negative) COVID-19 Clin Com See Note Influenza Type A (CARRIE) Negative (Negative) Influenza Type B (CARRIE) Negative (Negative) Influenza A & B Note See Note 04/29/22 04/29/22 Range/Units 16:19 16:19 WBC (4.8-10.8) X10*3/uL RBC (4.20-5.50) X10*6/uL Hgb (12.0-16.0) g/dl Hct (37.0-47.0) % MCV (80.0-98.0) fL MCH (27.0-33.0) pg MCHC (31.0-35.0) g/dl RDW (11.0-16.0) % Plt Count (160-400) X10*3/uL MPV (9.4-12.3) fL Immature Gran % (Auto) (0.0-0.4) % Neut % (Auto) (45-73) % Lymph % (Auto) (20-40) % [place] % (Auto) (2-11) % Eos % (Auto) (0-4) % Baso % (Auto) (0-2) % Lymph # (Auto) (1.2-4.9) X10*3/uL [place] # (Auto) (0.1-1.2) X10*3/uL Eos # (Auto) (0.0-0.4) X10*3/uL Baso # (Auto) (0.0-0.2) X10*3/uL Abs Immat Gran (auto) (0.00-0.03) X10*3/uL Absolute Neuts (auto) (2.0-8.3) x10*3/uL Absolute Nucleated RBC (0.0-0.012) X10*3/uL Nucleated RBC % (auto) (0.0-0.2) /100WBC PT (10.0-13.1) SEC INR (0.9-1.1) APTT (26.0-36.4) SEC Sodium (135-145) mmol/L Potassium (3.3-5.1) mmol/L Chloride (96-108) mmol/L Carbon Dioxide (22-29) mmol/L Anion Gap (12-20) BUN (9-16) mg/dL Creatinine (0.5-1.4) mg/dL Estim Creat Clear Calc Estimated GFR Random Glucose (60-115) mg/dL Lactic Acid (0.5-2.0) mmol/L Calcium (8.4-10.2) mg/dL Total Bilirubin (0.0-1.0) mg/dL AST (5-31) U/L ALT (0-31) U/L Alkaline Phosphatase (39-117) U/L Total Creatine Kinase (26-140) U/L Total Protein (6.5-8.0) g/dL Albumin (3.5-5.0) g/dL Lipase (8-78) U/L Beta HCG, Quant mIU/mL Urine Color Yellow Urine Appearance Clear Urine pH 6.5 (5.0-9.0) Ur Specific [place] <= 1.005 (1.005-1.025) Urine Protein Negative (Neg-Trace) mg/dL Urine Glucose (UA) Negative (Negative) mg/dL Urine Ketones Negative (Negative) mg/dL Urine Blood Trace H (Negative) Urine Nitrite Negative (Negative) Ur Leukocyte Esterase Negative (Negative) Urine RBC 0-2 (0-2) /HPF Urine WBC 0-5 (0-5) /HPF Ur Squamous Epith Cells 0-2 (0-2) /HPF Urine Bacteria None Seen (None Seen) Hyaline Casts 0-2 (0-2) /LPF Urine Opiates Screen Not Detected (Not Detect) Urine Fentanyl Screen Not Detected (Not Detect) Ur Barbiturates Screen Not Detected (Not Detect) Ur Phencyclidine Scrn Not Detected (Not Detect) Ur Amphetamines Screen Not Detected (Not Detect) U Benzodiazepines Scrn Not Detected (Not Detect) Urine Cocaine Screen Not Detected (Not Detect) U Marijuana (THC) Screen Not Detected (Not Detect) Ethyl Alcohol mg/dL COVID-19 (SHAKIR) (Negative) COVID-19 Clin Com Influenza Type A (CARRIE) (Negative) Influenza Type B (CARRIE) (Negative) Influenza A & B Note Discharge Plan Discharge Clinical Impression: Seizure, Acute hyponatremia, Acute hypokalemia, Hypocalcemia, Abdominal pain Patient Disposition: Still a Patient Prescriptions: No Action bisacodyl [Dulcolax (bisacodyl)] 5 mg tablet,delayed release (DR/EC) 10 mg PO ONCE 1 Days Qty: 2 0RF Rx Instructions: take orally as directed prior to colonoscopy polyethylene glycol 3350 [Miralax] 17 gram/dose powder 238 g PO ONCE 1 Days Qty: 238 0RF Rx Instructions: take orally as directed prior to colonoscopy levofloxacin 500 mg tablet 500 mg PO DAILY Qty: 7 0RF metronidazole 500 mg tablet 500 mg PO TID 7 Days Qty: 21 0RF ondansetron 4 mg tablet,disintegrating 4 mg PO Q8H PRN (Reason: nausea and vomiting) Qty: 30 0RF ascorbic acid (vitamin C) 250 mg tablet 1 tab PO DAILY ergocalciferol (vitamin D2) 1,250 mcg (50,000 unit) capsule PO buprenorphine-naloxone [Suboxone] 2-0.5 mg film 3 strip sublingual BEDTIME alum-mag hydroxide-simeth [Maalox Advanced] 200-200-20 mg/5 mL suspension 5 ml PO 5XD PRN (Reason: dyspepsia) Qty: 30 0RF Rx Instructions: administer between meals and at bedtime loratadine [Claritin] 10 mg tablet 10 mg PO DAILY Qty: 30 2RF famotidine [Pepcid] 40 mg tablet 40 mg PO BEDTIME Qty: 30 2RF buprenorphine-naloxone [Suboxone] 8-2 mg film 1 film buccal DAILY@0730 ioyiuqmzra-ledsqvebudmff-smam 50-325-40 mg tablet 0 tab PO
[2022-04-29] MEDS: Ondansetron ODT 4 MG TAB.RAPDIS TRANSLINGU (14:50)
[2022-04-29] MEDS: diphenhydrAMINE HCL 50 MG/ML VIAL 25 MG IVPUSH ×2 (14:50→17:47)
[2022-04-29] MEDS: HYDROmorphone HCl 1 MG/ML SYRINGE IVPUSH ×2 (14:51→17:48)
[2022-04-29] MEDS: 0.9 % Sodium Chloride 1,000 ML 999 ML IV (14:53)
[2022-04-29 16:05] LABS: MANUAL DIFF FLAG NO
[2022-04-29 16:08] LABS: Basophils Percent Auto 0.3 % (0-2); Hematocrit 32.1 % (37.0-47.0); Hemoglobin 11.6 g/dl (12.0-16.0); Imm Gran Abs Auto 0.07 X10*3/uL (0.00-0.03); Lymphocytes Absolute Auto 0.7 X10*3/uL (1.2-4.9); Lymphocytes Percent Auto 9.3 % (20-40); Mean Corpuscular HGB Conc 36.1 g/dl (31.0-35.0); Mean Corpuscular Hemoglobin 33.1 pg (27.0-33.0); Mean Corpuscular Volume 91.7 fL (80.0-98.0); Mean Platelet Volume 9.4 fL (9.4-12.3); Monocytes Absolute Auto 0.4 X10*3/uL (0.1-1.2); Monocytes Percent Auto 5.5 % (2-11); Neutrophils Percent Auto 83.9 % (45-73); Platelet Count 164 X10*3/uL (160-400); Red Cell Distribution Width 27.9 % (11.0-16.0); White Blood Count 7.1 X10*3/uL (4.8-10.8)
[2022-04-29 16:14] LABS: INTERNATIONAL NORM RATIO 1.4 (0.9-1.1); Prothrombin Time 16.3 SEC (10.0-13.1)
[2022-04-29 16:17] LABS: Partial Thromboplastin Time 29.4 SEC (26.0-36.4)
[2022-04-29 16:27] LABS: Appearance Urine Clear; Color Urine Yellow; Glucose Urine UA Negative (Negative); Leukocyte Esterase Urine Negative (Negative); Nitrite Urine Negative (Negative); PH 6.5 (5.0-9.0); Specific Gravity - Urine <= 1.005 (1.005-1.025); UMIC TRIGGER UACC YES; Urine Blood Trace (Negative); Urine Ketones Negative (Negative); Urine Protein Negative (Neg-Trace)
[2022-04-29 16:29] LABS: COVID-19 Test Negative (Negative); IDNOW Serial# 9DB6401D; IDNOW Serial# BCCEAD1C; Influenza A Negative (Negative); Influenza B2 Negative (Negative)
[2022-04-29 16:32] LABS: Bacteria Urine None Seen (None Seen); Hyaline Casts Urine 0-2 /LPF (0-2); RBC Urine 0-2 /HPF (0-2); Squamous Epithelial Cell Urine 0-2 /HPF (0-2); WBC Urine 0-5 /HPF (0-5)
[2022-04-29 16:35] LABS: Amphetamine Screen Urine Not Detected (Not Detect); Barbiturates, Urine Not Detected (Not Detect); Benzodiazepines Screen Urine Not Detected (Not Detect); Cannabinoid Screen Urine Not Detected (Not Detect); Cocaine Screen Urine Not Detected (Not Detect); Fentanyl, urine Not Detected (Not Detect); Opiate Screen Urine Not Detected (Not Detect); Phencyclidine Screen Urine Not Detected (Not Detect)
[2022-04-29 16:36] LABS: Alanine Aminotransferase 73 U/L (0-31); Alkaline Phosphatase 125 U/L (39-117); Anion Gap 18 (12-20); Aspartate Amino Transferase 201 U/L (5-31); Bilirubin Total 3.4 mg/dL (0.0-1.0); Blood Urea Nitrogen < 3 mg/dL (9-16); Calcium 8.3 mg/dL (8.4-10.2); Carbon Dioxide 37 mmol/L (22-29); Chloride 72 mmol/L (96-108); Creatinine Clr Calc Pharmacy 102.8; Estimated Glomerular Filt Rate > 60; Ethanol < 10 mg/dL; Glucose Random 112 mg/dL (60-115); HCG Quantitative < 2 mIU/mL; Lipase 38 U/L (8-78); Potassium 2.9 mmol/L (3.3-5.1); Sodium 124 mmol/L (135-145); Total Protein 6.4 g/dL (6.5-8.0)
[2022-04-29] MEDS: iohexoL 350 MG/ML 100 ML INFUS..BTL IV (17:00)
[2022-04-29] MEDS: Potassium Chloride Packet 20 MEQ PACKET 40 MEQ PO (17:48)
[2022-04-29 18:03] LABS: Reflex Lactate? Lactic Acid Added
--- NOTE | 2022-04-29 18:05 | PC.NURSE ---
per attending MD he stopped her IV fluid, she received approx 300cc of NS
[2022-04-29 18:06] LABS: Osmolality Urine 160 mosm/kg (373-1093)
[2022-04-29] MEDS: Prochlorperazine Edisylate 10 MG/2 ML VIAL IVPUSH (18:16)
--- NOTE | 2022-04-29 18:59 | PHA.MEDREC ---
Pharmacy Consult ? Medication Reconciliation Pharmacy has completed the medication reconciliation. Med rec based on pt's claim history. Pt unresponsive to verbal or physical stimuli
[2022-04-29] MEDS: PHENobarbitaL sodium 130 MG/ML VIAL 200 MG IM (19:14)
[2022-04-29] MEDS: Haloperidol Lactate 5 MG/ML VIAL IM (19:15)
[2022-04-29] MEDS: diphenhydrAMINE HCL 50 MG/ML VIAL IM (19:15)
--- NOTE | 2022-04-29 19:33 | PC.NURSE ---
Pt's bed placed on trendelenburg position r/t she became hypotensive 85/52 pulse 120.
[2022-04-29 19:51] LABS: Magnesium 0.7 mg/dL (1.6-2.6)
[2022-04-29 19:52] LABS: ~Lactic Acid-LAB USE ONLY 9.4 mmol/L (0.5-2.0)
[2022-04-29] MEDS: Potassium Chloride/H20 10 MEQ/100 ML PIGGYBACK 100 MEQ IV (19:58)
[2022-04-29] MEDS: Sodium Chloride Tab 1 GM TABLET PO (20:03)
[2022-04-29 20:05] LABS: Phosphorus 2.1 mg/dL (2.7-4.5)
--- NOTE | 2022-04-29 20:13 | P.HPCC_ITS ---
History of Present Illness Date of Service: 04/29/22 Attending physician on admission: Sergio Devlin Chief Complaint: seizure Patient is a 36-year-old female with a past medical history of ? opiate abuse ( on Suboxone), alcohol use? and colitis who presented to the emergency room? after her witnessed? seizure activity.? Patient stated? patient was shaking uncontrollably and drooling from about 60 seconds.? Also reported patient had seizures in the past about 2 years ago, had a workup which included CT scan, MRI and EEG which were unremarkable.? She was never started on anti seizure medications. The patient states that she does drink alcohol daily, she drinks 1-2 pt of rum per day and did drink alcohol prior to coming to the emergency department. Alcohol level is negative today.? ? Laboratory data was significant for? serum sodium 124, potassium 2.9, mag 0.7, 72, serum bicarb 37, lactic acid 4, calcium 8.3, AST 201, ALT 73, alk-phos 125, CK 747 Imaging:? ?Head CT:? negative for acute finding ?CT of the abdomen: Moderate hiatal hernia with a 2.0 cm soft tissue lesion. Markedly hypoattenuating hepatic parenchyma compatible with hepatic steatosis progressed from prior and hepatomegaly progressed from prior.? Review of Systems Review of Systems: Constitutional: No, fever, chills, weakness or fatigue. Eyes: No visual loss, blurred vision, double vision or yellow sclera ENT: No hearing loss, sneezing, congestion, runny nose or sore throat. Respiratory:No shortness of breath, cough. No hemoptysis. Cardiovascular: no chest pain. No palpitations. Gastrointestinal:+ Nausea, diffused abodminal pain. Genitourinary: No urinary frequency or incontinence. Neurologic: + headache, + anxiety. No numbness or tingling in the extremities. No change in bowel or bladder control. Musculoskeletal: No muscle pain, back pain, joint pain or stiffness. Hematologic/Lymphatics: No bleeding or bruising. No painful lymph nodes. Skin: No rash or itching. Endocrine: No cold or heat intolerance. No polyuria or polydipsia. Psychiatric: + anxiety PMFSH Past Medical History Medical History (Updated 04/29/22 @ 21:00 by Suze Clayton NP) Anemia Back pain Chronic diarrhea Colitis Hx of congenital abnormality Hx of hypoglycemia Hx of renal calculi Migraines Polysubstance abuse Family History Family History Father Diabetes Mother Hypertension Surgical History Surgical History H/O colonoscopy History of esophagogastroduodenoscopy (EGD) History of Roman fundoplication History of pyloroplasty Hx laparoscopic cholecystectomy Hx of section Hx of tooth extraction Hx of tubal ligation Social History Social History Household Members Other:: - - 2 children, oldest daughter - Alcohol intake: former Patient Tobacco Use Status: Former Tobacco user Quit Date: 2015 Substance Use Type: Marijuana Advance Directives: No Advance Directives Information Provided: Yes Current occupational status: disabled Meds Allergies Allergy/AdvReac Type Severity Reaction Status Date / Time amitriptyline [From Elavil] Allergy Severe NERVE Verified 10/04/21 10:21 DAMAGE HANDS methadone [METHADONE] Allergy Intermediate VOMITING Verified 10/04/21 10:21 acetaminophen [From TYLENOL] AdvReac Intermediate STOMACH Verified 10/04/21 10: 21 UPSET ibuprofen [From MOTRIN] AdvReac Intermediate GI UPSET Verified 10/04/21 10:21 strawberries Allergy Unknown Hives Uncoded 10/04/21 10:21 Active Medications: Current Medications Enoxaparin Sodium (Enoxaparin Sodium 40 Mg/0.4 Ml Syringe) 40 mg SUBCUT Q24H [facility] Folic Acid (Folic Acid 1 Mg Tablet) 1 mg PO DAILY TAYA Dexmedetomidine HCl (Precedex) 400 mcg in 100 mls @ 0 mls/hr IVCONT .Q0M TAYA; Protocol Levetiracetam (Keppra) 500 mg in 100 mls @ 400 mls/hr IV BID TAYA Potassium Chloride (Potassium Chloride/H20) 10 meq in 100 mls @ 100 mls/hr IV Q1H TAYA Stop: 04/29/22 21:44 Last Admin: 04/29/22 19:58 Dose: 100 mls/hr Magnesium Sulfate (Magnesium Sulfate/H2o) 2 gm in 50 mls @ 25 mls/hr IV ONCE ONE Stop: 04/29/22 21:51 Magnesium Sulfate (Magnesium Sulfate/H2o) 2 gm in 50 mls @ 25 mls/hr IV ONCE ONE Stop: 04/29/22 21:51 Potassium Phosphate (Kphos) 15 mmol in 250 mls @ 62.5 mls/hr IV ONCE ONE Stop: 04/30/22 00:05 Thiamine HCl 100 mg/ Sodium (Chloride) 101 mls @ 202 mls/hr IV DAILY [facility] Pharmacy Consult (Consult Rx Perform Med Rec) 1 each MISCELLANE ONCE PRN PRN Reason: Consult order Pharmacy Consult (Consult Rx Etoh Phenob Im/Po) 1 each MISCELLANE ONCE PRN; Protocol PRN Reason: Consult order Phenobarbital (Phenobarbital 15 Mg Tablet) 45 mg PO BID TAYA; Protocol Stop: 05/01/22 21:01 Phenobarbital (Phenobarbital 15 Mg Tablet) 15 mg PO BID TAYA; Protocol Stop: 05/03/22 21:01 Phenobarbital (Phenobarbital 15 Mg Tablet) 15 mg PO DAILY TAYA; Protocol Stop: 05/05/22 09:01 Phenobarbital Sodium (Phenobarbital Sodium 130 Mg/Ml Vial Im Q3hx2) 150 mg IM Q3H TAYA; Protocol Stop: 04/30/22 01:06 Home Medications Medication Instructions Recorded Confirmed Last Taken Type buprenorphine 8 mg-naloxone 2 mg 1 film buccal DAILY@0730 12/02/20 04/29/22 Unknown History sublingual film (Suboxone) buprenorphine 2 mg-naloxone 0.5 mg 3 strip sublingual BEDTIME 12/31/20 04/29/22 Unknown History sublingual film (Suboxone) eoptggihop-[id number]-[id number] 1 tab PO DAILY MRX1 PRN Migraine 06/08/21 04/29/22 Unknown History 50 mg-325 mg-40 mg tablet Headache Physical Exam Vital Signs: Vital Signs: Last Vital Signs Temp 98.4 F 04/29/22 19:30 Pulse 139 H 04/29/22 19:45 Resp 12 04/29/22 19:45 BP 98/62 04/29/22 19:45 Pulse Ox 100 04/29/22 19:45 O2 Del Method 04/29/22 19:45 BMI result Body Mass Index 27.1 Constitutional: Alert, x 3.? Lethargic but able to answer questions HEENT: Normocephalic. Pupils are equal, round and reactive to light. Oropharynx clear, dry mucous membranes . Neck: Supple, Full range of motion. Respiratory: CTA all lung butler.? No resp distress. Cardiovascular: Sinus Tach. S1 S2 regular. No murmurs, rubs or gallops. Gastrointestinal: Abdomen soft, diffused tenderness.. Normal bowel sounds. No pulsatile mass. Neurologic: ? no focal deficits noted. Able to move all extremities? to command. ? Strength is normal all extremities.? Skin: No rash, brusining. Heme/Lymphatics/Immun: Palpation of neck reveals no swelling or tenderness of neck nodes. Psychiatric: Normal mood and affect Results Labs CBC and Chem 7: 04/29/22 15:56 04/29/22 15:56 Labs: Laboratory Results - last 24 hr 04/29/22 04/29/22 04/29/22 15:56 15:56 15:56 MCV 91.7 MCH 33.1 H MCHC 36.1 H RDW 27.9 H Plt Count 164 D MPV 9.4 Immature Gran % (Auto) 1.0 H Neut % (Auto) 83.9 H Lymph % (Auto) 9.3 L [place] % (Auto) 5.5 Eos % (Auto) 0.0 Baso % (Auto) 0.3 Lymph # (Auto) 0.7 L [place] # (Auto) 0.4 Eos # (Auto) 0.0 Baso # (Auto) 0.0 Abs Immat Gran (auto) 0.07 H Absolute Neuts (auto) 6.0 Absolute Nucleated RBC 0.000 Nucleated RBC % (auto) 0.0 PT 16.3 H INR 1.4 H APTT 29.4 Anion Gap 18 Estim Creat Clear Calc 102.8 Estimated GFR > 60 Random Glucose 112 Lactic Acid Lactic Acid F/U @ 2Hr Calcium 8.3 L D Phosphorus 2.1 L Magnesium 0.7 L* Total Bilirubin 3.4 H AST 201 H ALT 73 H Alkaline Phosphatase 125 H Total Creatine Kinase 747 H Total Protein 6.4 L Albumin 4.0 Lipase 38 Beta HCG, Quant < 2 Urine Color Urine Appearance Urine pH Ur Specific [place] Urine Protein Urine Glucose (UA) Urine Ketones Urine Blood Urine Nitrite Ur Leukocyte Esterase Urine RBC Urine WBC Ur Squamous Epith Cells Urine Bacteria Hyaline Casts Urine Osmolality Ur Random Sodium Urine Opiates Screen Urine Fentanyl Screen Ur Barbiturates Screen Ur Phencyclidine Scrn Ur Amphetamines Screen U Benzodiazepines Scrn Urine Cocaine Screen U Marijuana (THC) Screen Ethyl Alcohol < 10 COVID-19 (SHAKIR) COVID-19 Clin Com Influenza Type A (CARRIE) Influenza Type B (CARRIE) Influenza A & B Note 04/29/22 04/29/22 04/29/22 15:56 15:56 15:56 MCV MCH MCHC RDW Plt Count MPV Immature Gran % (Auto) Neut % (Auto) Lymph % (Auto) [place] % (Auto) Eos % (Auto) Baso % (Auto) Lymph # (Auto) [place] # (Auto) Eos # (Auto) Baso # (Auto) Abs Immat Gran (auto) Absolute Neuts (auto) Absolute Nucleated RBC Nucleated RBC % (auto) PT INR APTT Anion Gap Estim Creat Clear Calc Estimated GFR Random Glucose Lactic Acid 4.0 H* Lactic Acid F/U @ 2Hr Calcium Phosphorus Magnesium Total Bilirubin AST ALT Alkaline Phosphatase Total Creatine Kinase Total Protein Albumin Lipase Beta HCG, Quant Urine Color Urine Appearance Urine pH Ur Specific [place] Urine Protein Urine Glucose (UA) Urine Ketones Urine Blood Urine Nitrite Ur Leukocyte Esterase Urine RBC Urine WBC Ur Squamous Epith Cells Urine Bacteria Hyaline Casts Urine Osmolality Ur Random Sodium Urine Opiates Screen Urine Fentanyl Screen Ur Barbiturates Screen Ur Phencyclidine Scrn Ur Amphetamines Screen U Benzodiazepines Scrn Urine Cocaine Screen U Marijuana (THC) Screen Ethyl Alcohol COVID-19 (SHAKIR) Negative COVID-19 [facility] Risk Management Com See Note Influenza Type A (CARRIE) Negative Influenza Type B (CARRIE) Negative Influenza A & B Note See Note 04/29/22 04/29/22 04/29/22 16:19 16:19 17:27 MCV MCH MCHC RDW Plt Count MPV Immature Gran % (Auto) Neut % (Auto) Lymph % (Auto) [place] % (Auto) Eos % (Auto) Baso % (Auto) Lymph # (Auto) [place] # (Auto) Eos # (Auto) Baso # (Auto) Abs Immat Gran (auto) Absolute Neuts (auto) Absolute Nucleated RBC Nucleated RBC % (auto) PT INR APTT Anion Gap Estim Creat Clear Calc Estimated GFR Random Glucose Lactic Acid Lactic Acid F/U @ 2Hr Calcium Phosphorus Magnesium Total Bilirubin AST ALT Alkaline Phosphatase Total Creatine Kinase Total Protein Albumin Lipase Beta HCG, Quant Urine Color Yellow Urine Appearance Clear Urine pH 6.5 Ur Specific [place] <= 1.005 Urine Protein Negative Urine Glucose (UA) Negative Urine Ketones Negative Urine Blood Trace H Urine Nitrite Negative Ur Leukocyte Esterase Negative Urine RBC 0-2 Urine WBC 0-5 Ur Squamous Epith Cells 0-2 Urine Bacteria None Seen Hyaline Casts 0-2 Urine Osmolality 160 L Ur Random Sodium Urine Opiates Screen Not Detected Urine Fentanyl Screen Not Detected Ur Barbiturates Screen Not Detected Ur Phencyclidine Scrn Not Detected Ur Amphetamines Screen Not Detected U Benzodiazepines Scrn Not Detected Urine Cocaine Screen Not Detected U Marijuana (THC) Screen Not Detected Ethyl Alcohol COVID-19 (SHAKIR) COVID-19 Clin Com Influenza Type A (CARRIE) Influenza Type B (CARRIE) Influenza A & B Note 04/29/22 04/29/22 17:27 19:11 MCV MCH MCHC RDW Plt Count MPV Immature Gran % (Auto) Neut % (Auto) Lymph % (Auto) [place] % (Auto) Eos % (Auto) Baso % (Auto) Lymph # (Auto) [place] # (Auto) Eos # (Auto) Baso # (Auto) Abs Immat Gran (auto) Absolute Neuts (auto) Absolute Nucleated RBC Nucleated RBC % (auto) PT INR APTT Anion Gap Estim Creat Clear Calc Estimated GFR Random Glucose Lactic Acid Lactic Acid F/U @ 2Hr 9.4 H* Calcium Phosphorus Magnesium Total Bilirubin AST ALT Alkaline Phosphatase Total Creatine Kinase Total Protein Albumin Lipase Beta HCG, Quant Urine Color Urine Appearance Urine pH Ur Specific [place] Urine Protein Urine Glucose (UA) Urine Ketones Urine Blood Urine Nitrite Ur Leukocyte Esterase Urine RBC Urine WBC Ur Squamous Epith Cells Urine Bacteria Hyaline Casts Urine Osmolality Ur Random Sodium 53.0 Urine Opiates Screen Urine Fentanyl Screen Ur Barbiturates Screen Ur Phencyclidine Scrn Ur Amphetamines Screen U Benzodiazepines Scrn Urine Cocaine Screen U Marijuana (THC) Screen Ethyl Alcohol COVID-19 (SHAKIR) COVID-19 Clin Com Influenza Type A (CARRIE) Influenza Type B (CARRIE) Influenza A & B Note Imaging Radiologist's Impressions: Impressions Chest X-Ray 04/29/22 14:29 IMPRESSION: No active disease. Abdomen/Pelvis CT 04/29/22 17:01 IMPRESSION: Moderate hiatal hernia with a 2.0 cm soft tissue lesion noted in the anti--dependent portion of the hernia sac which contains few foci of gas, unclear if this could reflect retained gastric products or a primary gastric mass given the anti--dependent location, and correlation with endoscopy is recommended. Markedly hypoattenuating hepatic parenchyma compatible with hepatic steatosis progressed from prior and hepatomegaly progressed from prior. Head CT 04/29/22 17:02 IMPRESSION: 1. No acute intracranial abnormality including hemorrhage, mass effect, hydrocephalus, or acute territorial edematous infarction. 2. Small layering fluid in right maxillary sinus. Correlate clinically for acute sinusitis. Assessment and Plan (1) Alcohol withdrawal seizure: Status: Acute (2) Alcohol withdrawal: Status: Acute (3) Acute hyponatremia: Status: Acute (4) Acute hypokalemia: Status: Acute (5) Hypocalcemia: Status: Acute (6) Abdominal pain: Status: Acute (7) Hypomagnesemia: Status: Acute (8) Alcohol abuse: Status: Acute (9) Polysubstance abuse: Status: Acute Plan Plan:? Neuro:? ?Seizure:? patient seems to have had a witness? seizure,? had a seizure 2 years ago with negative? CT/ MRI and EEG. ? likely alcohol withdrawal related seizure. ? Head CT is negative for acute findings. Will add Keppra.? ?Alcohol withdrawal syndrome-? patient admits to drinking 1-2 pt? of alcohol,? a poor historian.?Alcohol level negative while in the emergency room.? Likely active alcohol withdrawal syndrome.? ED provider started phenobarb protocol.? Will also add Precedex drip. Cardiac:?? ?Elevated lactic:? patient was seen to have an active infection,? white count? not elevated, no signs of? infection.? Elevated lactic likely? from post seizure activity Pulmonary:? No acute issues Renal:? Acute hyponatremia? -? patient?s hyponatremia likely caused by alcohol abuse. If patient tolerated will add sodium tab and diet. Water restriction.? Frequent neuro checks. Serial serum sodium.? ?Hypokalemia/ Hypomagnesemia/? hypophosphatemia :? likely from alcohol abuse,? No changes on EKG. will replace and repeat chemistries? Endo:? No acute issues.?? GI: nausea-? likely from alcohol withdrawal syndrome ID:? no acute issues Heme/Onc:? No acute issues. Psych: ? history of polysubstance abuse on Suboxone.? Will hold Suboxone until off precedex Diet:Regular ? prophylaxis: Lovenox, No GI prophylaxis at this time ? Critical care time:? X 90 minutes of critical care time Code? status:? FULL CODE? ?Case discussed with attending Dr Devlin Critical Care Time Critical Care Time (minutes): 90
[2022-04-29] MEDS: dexmedeTOMIDidine HCL/NS 400 MCG/100 ML INFUS..BTL 8.4 MCG IVCONT (20:27)
--- NOTE | 2022-04-29 20:27 | PC.NURSE ---
Development Geologist ordered this RN to hang Precedex at 0.5 mcg/kg/hr prior to transporting
[2022-04-29] MEDS: Calcium Gluconate/NaCl,Iso-Osm 1 GM/50 ML PLAST..BAG IV (20:59)
[2022-04-29] MEDS: Magnesium Sulfate/H2O 2 GM/50 ML PIGGYBACK IV (21:12)
[2022-04-29 21:13] LABS: Reflex Lactate? 2 Y
[2022-04-29] MEDS: levETIRAcetam in NaCl (iso-os) 500 MG/100 ML PIGGYBACK 400 MG IV (21:38)
[2022-04-29] MEDS: Enoxaparin Sodium 40 MG/0.4 ML SYRINGE SUBCUT (21:45)
[2022-04-29 21:55] LABS: ~Lactic Acid-LAB USE ONLY 4.2 mmol/L (0.5-2.0)
[2022-04-29] MEDS: Potassium Phosphate/NS 15 MMOL/250 ML PLAST..BAG 62.5 MMOL IV (21:57)
[2022-04-29] MEDS: Albumin Human 25 % 100 ML IV (22:25)
[2022-04-29] MEDS: Potassium Chloride/H20 10 MEQ/100 ML PIGGYBACK 50 MEQ IV (22:31)
[2022-04-29] MEDS: PHENobarbitaL sodium 130 MG/ML VIAL IM Q3Hx2 150 MG IM (22:39)
[2022-04-29] MEDS: propofoL 200 MG/20 ML VIAL 50 MG IVPUSH (23:15)
[2022-04-29 23:29] LABS: Glucose, Whole Blood 82 mg/dL (60-115)
[2022-04-30] VITALS (8 sets, daily range): BP systolic 65–127; BP diastolic 15–57; PULSE 100–138; RESP 25–38; TEMP 35–37.1; O2SAT 85–93
--- NOTE | 2022-04-30 | ECG_ITS ---
Test Reason : rhythm Blood Pressure : / mmHG Vent. Rate : 132 BPM Atrial Rate : 132 BPM P-R Int : 122 ms QRS Dur : 084 ms QT Int : 392 ms P-R-T Axes : 076 -04 051 degrees QTc Int : 580 ms Sinus tachycardia Low voltage QRS Nonspecific ST and T wave abnormality late transition Abnormal ECG When compared with ECG of 14-AUG-2020 12:45, Vent. rate has increased BY 65 BPM QRS voltage has decreased Nonspecific ST and T wave abnormality is new Referred By: Suze Clayton Electronically Signed By:JESI MACHADO MD
[2022-04-30] MEDS: Sodium Bicarbonate 8.4% 50 MEQ/50 ML VIAL IVPUSH ×5 (00:20→00:48)
[2022-04-30] MEDS: EPINEPHrine 5 MG in Dextrose 5 % 250 ML 363.53 MG IVCONT ×6 (00:26→03:54)
[2022-04-30] MEDS: Phenylephrine HCL 20 MG in 0.9 % Sodium Chloride 250 ML 269.44 MG IVCONT ×5 (00:31→04:07)
[2022-04-30 00:34] LABS: VBG Base Excess -7.5 mmol/L; VBG HCO3 21 mmol/L (22-26); VBG pCO2 54 mmHg; VBG pH 7.18 (7.32-7.43); VBG pO2 43 mmHg
[2022-04-30 00:34] LABS: Basophils Percent Auto 0.2 % (0-2); Hemoglobin 11.2 g/dl (12.0-16.0); Imm Gran Abs Auto 0.08 X10*3/uL (0.00-0.03); Imm Gran Pct Auto 1.7 % (0.0-0.4); Lymphocytes Absolute Auto 2.2 X10*3/uL (1.2-4.9); Lymphocytes Percent Auto 47.3 % (20-40); Mean Corpuscular HGB Conc 33.9 g/dl (31.0-35.0); Mean Corpuscular Hemoglobin 33.8 pg (27.0-33.0); Mean Corpuscular Volume 99.7 fL (80.0-98.0); Mean Platelet Volume 10.9 fL (9.4-12.3); Monocytes Absolute Auto 0.1 X10*3/uL (0.1-1.2); Monocytes Percent Auto 1.9 % (2-11); Neutrophils Absolute Auto 2.3 x10*3/uL (2.0-8.3); Neutrophils Percent Auto 48.9 % (45-73); Red Blood Count 3.31 X10*6/uL (4.20-5.50); White Blood Count 4.6 X10*3/uL (4.8-10.8)
[2022-04-30 00:35] LABS: MANUAL DIFF FLAG SCAN; NRBC Pct Auto 1.7 /100WBC (0.0-0.2); Platelet Count 63 X10*3/uL (160-400)
[2022-04-30 00:52] LABS: Anion Gap 37 (12-20); Blood Urea Nitrogen 4 mg/dL (9-16); Calcium 12.1 mg/dL (8.4-10.2); Carbon Dioxide 21 mmol/L (22-29); Chloride 84 mmol/L (96-108); Creatinine Clr Calc Pharmacy 56.4; Estimated Glomerular Filt Rate 57; Glucose Random 257 mg/dL (60-115); Potassium 4.2 mmol/L (3.3-5.1); Sodium 138 mmol/L (135-145)
[2022-04-30 00:57] LABS: Magnesium 3.7 mg/dL (1.6-2.6); Phosphorus 10.7 mg/dL (2.7-4.5)
--- NOTE | 2022-04-30 01:01 | W.PM.CCHP ---
Procedures Date of Service Date of Service: 04/30/22 Arterial Line Arterial Line Comments: Right femoral arterial line emergently placed for blood pressure monitoring/vasopressor titration under ultrasound guidance and usual sterile conditions with no immediate complications.
[2022-04-30 01:03] LABS: Venous Blood Gas Refer to POC result
--- NOTE | 2022-04-30 01:03 | W.PM.CCHP ---
Procedures Date of Service Date of Service: 04/30/22 Central Line Placement Right IJ: Central Line Comments: Right internal jugular triple-lumen central venous catheter emergently placed for vasopressor support under ultrasound guidance and usual sterile conditions with no immediate complications. Line position verified on chest x-ray.
[2022-04-30 01:17] LABS: SLIDE REVIEW VERIFIED
[2022-04-30] MEDS: iohexoL 350 MG/ML 100 ML INFUS..BTL 85 ML IV (01:40)
[2022-04-30 01:42] LABS: Lactic Acid 21.9 mmol/L (0.5-2.0)
--- NOTE | 2022-04-30 02:00 | PC.NURSE ---
CODE BLUE While preparing to intubate patient for airway protection, patient noted to have multiple small runs of VTach. At 2307 patient went into pulseless VTach - CPR started, Michael device placed and code called. Suze PLATEMAN at bedside during code. See code sheet for full details.
[2022-04-30 02:17] LABS: Troponin-I High Sensitivity 886.5 ng/L (<3.5-17.0)
--- NOTE | 2022-04-30 02:25 | PM.CCN ---
Critical Care Event Note Summary Date of Service: 04/29/22 Code activated: Yes Narrative: This case had a high probability of a clinically significant, sudden, or life threatening deterioration of this patient's condition which required my full and direct attention, intervention and personal management. Critical Care Time (minutes): 120 Comment: ?When patient 1st arrived to ICU patient very combative, agitated.? Required initiation of Precedex drip.? Normotensive.? At approximately 22:00? patient blood pressure started to? trend down.? Precedex drip weaned off,? will blood pressure continue to? drop? patient started on Levophed and an amp of bicarb was given.? At approximately 2300? patient went into VTACH,? still had a pulse? and adequate blood pressure, 1 amp of epi? was given iv push and intubated.? At 23:03? patient was pulseless on, VTACH/VFIB cardiac arrest.? ACLS initiated, please see code sheet. ROSC was achieved at 2355 Patient? maxed out on Levophed drip, epi drip, as well as phenylephrine drip.? Require multiple doses of bicarb.? Stat labs were obtained ? ?Post code Abnormal labs? VBG:? 7.18/54/43/21, WBC 4.6 hemoglobin 11.2, platelet count 63,? sodium corrected to 138, potassium 4.2,? serum bicarb 21, gap 37, in creatinine 1.09, random glucose 257, lactic acid 21.9, calcium 12.1, phos 10, Mag 3.7, troponin sensitivity 186,? I will amend 2.8 Imaging:? head? CT:? no acute changes ?Chest CT:? with significant amount of pulmonary edema ?Abdominal CT with contrast:? Markedly narrowed celiac axis and distal branches, potentially due in part to median arcuate ligament compression. A superimposed process is possible as there is no significant post stenotic dilatation. Additional compromise of the celiac axis blood supply suspected as there is no appreciable enhancement of the spleen and no appreciable contrast enhancement of the hepatic vein, suggesting splenic infarction. Arterial blood flow to the liver is also likely compromised. Hepatic venous gas may be related to this vascular compromise, though quite atypical. EKG: Sinus tach. No ST elevation? Attending Dr Devlin at bedside, me and him personally reviewed CT scan with Radiologist and do not believe patient sudden decompensation is from abdomen. Patient likely cardiac arrested from cardiac source. Christiano (HCP/ ) present at bedside, informed of patient poor prognosis. Code status changed to DNR? Plan:? Will start amio drip? Post cardiac arrest hypothermia protocol? Critical Care Time Critical Care Time (minutes): 120
--- NOTE | 2022-04-30 02:25 | W.PM.CCHP ---
Procedures Date of Service Date of Service: 04/29/22 Intubation Intubation Comments: No decrease mental status, required emergent intubation for airway protection. ?Patient intubated with 7.5 cuffed ET tube under glide scope guidance with visualization of vocal cords, without immediate complications. ET tube position verified with Chest XRAY. Consent for Procedure: Emergent-no informed consent obtained Time out performed: Yes Laryngoscope: fiber optic video scope ET tube size: 7.5 ET tube uncuffed: No Tube secured depth (cm): 25 Tube secured location: lips Tube placement confirmation: visualized tube passing through cords, equal breath sounds bilaterally, no breath sounds over epigastrium and confirmation by capnometry Patient tolerated procedure: well and no complications Intubation complications: none
[2022-04-30 02:29] LABS: Reflex Lactate? Lactic Acid Added
[2022-04-30 02:53] LABS: Alanine Aminotransferase 53 U/L (0-31); Albumin Level 2.8 g/dL (3.5-5.0); Alkaline Phosphatase 113 U/L (39-117); Aspartate Amino Transferase 251 U/L (5-31); Bilirubin Direct 1.1 mg/dL (0.0-0.5); Bilirubin Total 2.2 mg/dL (0.0-1.0); Total Protein 4.5 g/dL (6.5-8.0)
[2022-04-30] MEDS: Piperacillin Sodium/Tazobactam 4.5 GM in 0.9 % Sodium Chloride 100 ML IV (02:53)
[2022-04-30] MEDS: Amiodarone HCL 900 MG in 0.9 % Sodium Chloride 500 ML 34.53 MG IVCONT (03:06)
--- NOTE | 2022-04-30 04:00 | PC.NURSE ---
After cardiac arrest patient remains unresponsive to any stimuli. Verbal order from Suze Clayotn FRUIT PRESS OPERATOR for therapeutic hypothermia to be initiated. Cooling blanket set to 92 degrees Faranheit and cooling initiated at 0330. At approximately 0400 patient noted to become more hypotensive despite being maxed on Levophed, Ralph-synephrine and Epi gtts. FRUIT PRESS OPERATOR at bedside to evaluate. x1 dose of sodium bicarb ordered and given. No significant change noted to BPs. Plan is to continue supportive care at this time.
[2022-04-30] MEDS: Sodium Bicarbonate 8.4% 50 MEQ/50 ML SYRINGE IVPUSH (04:04)
[2022-04-30] MEDS: Sodium Bicarbonate 8.4% 150 MEQ in Dextrose 5 % 850 ML 100 MEQ IV (04:04)
--- NOTE | 2022-04-30 04:51 | PM.EVENT ---
Event Note Date of Service: 04/30/22 Event Note: Patient DNR, at 0425 end tidal reading 1, patient was pulseless showing asystole on the monitor. ? Absent peripheral pulses.? Pupils fixed and dilated, no corneal or gag reflex.? Absent heart sounds? and no spontaneous breathing.? Official time of 0425 a.m.? Christiano ()? was notified. train examiner contacted, spoke with Piero Walker, she was accepted Case # [id number]. Organ donation was notified by nursing. ? Attending Dr Devlin notified?
[2022-04-30 05:28] LABS: Reflex Lactate? 2 Y
--- NOTE | 2022-04-30 06:23 | PC.NURSE ---
Patient at 424, pronounced by Suze Clayton NP. Family notified by PRODUCT SAFETY MANAGER. [facility] called for referral, patient accepted and plan to contact Brush Material Preparer regarding case.
--- NOTE | 2022-04-30 10:18 | PM.DDS ---
Discharge Sum: Prov Provider Primary care physician: Mesha De Anda DO Discharge Sum: Diag PCOD Cause of : Ventricular tachycardia Contributing Factors (1) V-tach: (2) Alcohol withdrawal: (3) Alcohol withdrawal seizure: (4) Acute hyponatremia: (5) Acute hypokalemia: (6) Hypocalcemia: (7) Hypomagnesemia: (8) Abdominal pain: (9) Alcohol abuse: (10) Polysubstance abuse: Discharge Sum: Summary Date and Time Date of admission: 04/29/22 19:32 Date of : 04/30/22 Time of : 04:25 Summary Details: 36-year-old lady with prior history of opioid abuse on Suboxone, alcohol abuse admitted on 04/29/2022 with a witnessed alcohol withdrawal seizure and multiple electrolyte abnormalities including hypernatremia, hypokalemia, hypomagnesemia, hypocalcemia with significant agitation not controlled on phenobarbital protocol requiring initiation of Precedex drip admitted to intensive care unit and started on electrolyte replacement. At approximately 23:00 patient setting developed ventricular tachycardia rapidly deteriorating into cardiac arrest with defibrillation and cardiopulmonary resuscitation started immediately. After prolonged resuscitation of of approximately 1 hour with several transient episodes of return of spontaneous circulation, but repeated deterioration back to cardiac arrest, requiring multiple episodes of defibrillation and antiarrythmics stable return of spontaneous circulation was achieved. However, patient required extremely high vasopressor support with 3 agents at maximum doses. Post code 12 lead ECG demonstrated no ST changes requiring catheterization lab investigation. Repeat computed tomography performed to evaluate for possible abdominal or thoracic source of elevated lactate showed no possible sources. Patient's was present during the CPR time and after the CPR discussion above extremely poor overall prognosis was held and code status was changed to do not resuscitate. Over the next several hours patient's blood pressure continued to decline despite maximum support with resultant asystole at 04:25 a.m. with patient pronounced at that time. Case referred to and accepted by phlebotomist medical lab assistant. Additional Data Attending physician: Sergio Devlin MD cigarette examiner notified?: Yes Organ bank notified?: Yes
--- NOTE | 2022-05-12 12:40 | P.CDIR_ITS ---
Documented by User: Oliva Blanco RN 05/12/22 15:02 Retrospective Query PHYSICIAN'S DOCUMENTATION REQUEST Date of Query: 05/12/22 1240 Patient Name: Pastora Garza Admit Date: 04/29/22 Dear Doctor, A review of the medical record indicates additional documentation may be needed. Please review below and update the documentation accordingly. Clinical Indicators: Is there a diagnosis that correlates with the findings below: Risk Factors/Clinical Indicators/Treatments Per ED note on 04/29: At this time, patient is encephalopathic. Unable to answer any questions, not making sense. Per provider note on 04/29: Lethargic but able to answer questions Other indicators: -Temp on 04/29: 102.9 -pH on 04/29: 7.18 -Patient requiring mechanical ventilatio n -patient cardiac arrested & required thr ee pressure support gtts Based on the above, could you clarify in the Progress Notes which, if any of the following, is the most likely etiology of the confusion/altered mental status? * Encephalopathy - indicate type such as metabolic, toxic, septic, alcoholic, hypertensive, etc. * Other etiology (please specify) * Unable to determine Use of terms such as suspected, likely, concern for, or probable (associated with a specific diagnosis that is being evaluated, monitored, or treated as if it exists) are acceptable and can be coded in the inpatient setting, when documented at the time of discharge. Thank you, Oliva Blanco MS, RN, CCRN Extension: [phone] Please use your independent medical judgment in providing your response. THIS QUERY IS PART OF THE PERMANENT MEDICAL RECORD Documented by User: Sergio Devlin MD 05/12/22 16:29 Retrospective Query Provider Response: Other (Acute metabolic encephalopathy likely related to alcohol withdrawal)
--- NOTE | 2022-05-12 13:06 | P.CDIR_ITS ---
Documented by User: Oliva Blanco RN 05/12/22 15:03 Retrospective Query PHYSICIAN'S DOCUMENTATION REQUEST Date of Query: 05/12/22 1304 Patient Name: Pastora Garza Admit Date: 04/29/22 Dear Doctor, A review of the medical record indicates additional documentation may be needed. Please review below and update the documentation accordingly. Clinical Indicators: Is there a diagnosis that correlates with the findings below: Risk Factors/Clinical Indicators/Treatments Per chest CT on 04/30: - Chest CT:? with significant amount of pulmonary edema - Severe pulmonary edema Clarify which of the following accurately represents the patient's respiratory status: * Acute pulmonary edema * Other/rule out (please specify) * Unable to determine Use of terms such as suspected, likely, concern for, or probable (associated with a specific diagnosis that is being evaluated, monitored, or treated as if it exists) are acceptable and can be coded in the inpatient setting, when documented at the time of discharge. Thank you, Oliva Blanco, , RN, CCRN Extension: [phone] Please use your independent medical judgment in providing your response. THIS QUERY IS PART OF THE PERMANENT MEDICAL RECORD Documented by User: Sergio Devlin MD 05/12/22 16:26 Retrospective Query Provider Response: Other (Acute pulmonary edema)
--- NOTE | 2022-05-12 13:14 | P.CDIR_ITS ---
Documented by User: Oliva Blanco RN 05/12/22 15:01 Retrospective Query PHYSICIAN'S DOCUMENTATION REQUEST Date of Query: 05/12/22 1316 Patient Name: Pastora Garza Admit Date: 04/29/22 Dear Doctor, A review of the medical record indicates additional documentation may be needed. Please review below and update the documentation accordingly. Clinical Indicators: Is there a diagnosis that correlates with the findings below: Risk Factors/Clinical Indicators/Treatments -Patient requiring maximum amounts of ep inephrine, levophed, and phenylephrine gtts to manage hypotension -Lactic acid on 04/29: 9.4 -Lactic acid on 04/30: 29.0 -Patient went into VTACH/VFIB prior to h er cardiac arrest -Patient requiring mechanical ventilatio n Based on the above, could you clarify in the Progress Notes the appropriate diagnosis, if significant, that supports the above abnormalities and additional evaluation, monitoring, and/or treatment rendered: * Cardiogenic shock * Other/rule out (please specify) * Unable to determine Use of terms such as suspected, likely, concern for, or probable (associated with a specific diagnosis that is being evaluated, monitored, or treated as if it exists) are acceptable and can be coded in the inpatient setting, when documented at the time of discharge. Thank you, Oliva Blanco, MS, RN, CCRN Extension: [phone] Please use your independent medical judgment in providing your response. THIS QUERY IS PART OF THE PERMANENT MEDICAL RECORD Documented by User: Sergio Devlin MD 05/12/22 16:29 Retrospective Query Provider Response: Other (Cardiogenic shock as a consequence of V-tach arrest)
== END 2022-04-30 08:24 | disposition expired | DRG 423 ==
LOC: HO.ED 19:25 → HO.EDOVER 19:39 → HO.ICU 19:42
PROVIDERS: Emergency Medicine Emergency Medical Services; Admitting Provider Registered Nurse Community Health; Emergency Provider Emergency Medicine; PCP Family Medicine; Visit Provider Internal Medicine Pulmonary Disease
DX: E78.1 Pure hyperglyceridemia (principal); R57.0 Cardiogenic shock; J81.0 Acute pulmonary edema; G93.41 Metabolic encephalopathy; I47.20 Ventricular tachycardia, unspecified; E83.51 Hypocalcemia; R56.9 Unspecified convulsions; Z66 Do not resuscitate; I49.01 Ventricular fibrillation; F11.20 Opioid dependence, uncomplicated; F19.10 Other psychoactive substance abuse, uncomplicated; F10.139 Alcohol abuse with withdrawal, unspecified; E87.6 Hypokalemia; Z20.822 Contact with and (suspected) exposure to COVID-19; Z88.6 Allergy status to analgesic agent; Z88.8 Allergy status to other drugs, medicaments and biological substances
CPT/HCPCS: 36415; 70450; 71045; 71250; 74177; 80048; 80053; 80076; 80307; 81001; 82077; 82550; 82803; 82947; 83605; 83690; 83735; 83935; 84100; 84300; 84484; 84702; 85025; 85610; 85730; 87502; 87635; 93005; 94002; 94799; 96361; 96372; 96374; 96375; 96376; 99283; 99285; J0171; J0282; J0610; J1170; J1200; J1650; J1953; J2370; J2543; J2560; J3475; P9047; Q9967